=== PATIENT | male | born 1945 | race Hispanic/Latino ===

== ENCOUNTER 2020-08-30 19:18 | Inpatient (IN) | payer MEDICARE ==
[2020-08-30 19:52] LABS: #Lymphocytes 1.7 thou/uL (1.20-3.40); #Monocytes 0.7 thou/uL (0.11-0.59); #Neutrophils 5.4 thou/uL (1.40-6.50); %Basophils 0.5 % (0.0-1.0); %Eosinophils 0.6 % (0.0-10.0); %Lymphocytes 21.3 % (21.0-51.0); %Monocytes 8.9 % (0.0-10.0); %Neutrophils 68.6 % (42.0-75.0); Hemoglobin 17.2 g/dL (14.0-18.0); Mean Corpuscular HGB CONC 33.6 g/dL (32.0-36.0); Mean Corpuscular Hemoglobin 30.8 pg (27.0-31.0); Mean Corpuscular Volume 91.6 fL (78.0-98.0); Mean Platelet Volume 6.5 fL (7.4-10.4); Platelet Count 463 thou/uL (130-400); Red Blood Cell (RBC) Count 5.58 mill/uL (4.70-6.10); White Blood Cell (WBC) Count 7.9 thou/uL (4.8-10.8)
--- NOTE | 2020-08-30 20:08 | RAD ---
PORTABLE CHEST: 08/30/20 HISTORY: Shortness of breath. COMPARISON: 11/22/16 study. Heart size is enlarged. There are postop sternotomy changes. Bilateral lung infiltrates are seen, mor e peripheral in distribution. IMPRESSION: Multifocal infiltrates. This would be suspicious for COVID pneumonia. POS: OFF
[2020-08-30 20:14] LABS: ALT (SGPT) 18 U/L (8-55); AST (SGOT) 47 U/L (5-34); Albumin 2.9 g/dL (3.4-4.8); Alkaline Phosphatase 131 U/L (40-110); Anion Gap 14 mmol/L (10-20); BUN (Urea Nitrogen) 33 mg/dL (8.4-25.7); Calc. Creatinine Clearance 0 mL/min (70-130); Calcium 9.2 mg/dL (7.8-10.44); Carbon Dioxide 27 mmol/L (23-31); Chloride 103 mmol/L (98-107); Globulin 5.1 g/dL (2.4-3.5); Glucose 100 mg/dL (83-110); Sodium 140 mmol/L (136-145)
--- NOTE | 2020-08-30 21:00 | PDOC.FPRHP ---
- History of Present Illness Chief Complaint: Shortness of Breath History of Present Illness: Patient is a 74 yo M who has not seen a PCP in >5 yrs who presents today for worsening SOB. He reports gradual worsening of SOB over the past 2 weeks. He typically is able to walk 2-3 miles/day but now gets dyspneic walking around his home. Patient was otherwise asymptomatic. ED Course: Lab work significant for BNP 324, CXR per my read-bilateral opacities with opacity in LLL. - Allergies/Adverse Reactions Allergies Allergy/AdvReac Type Severity Reaction Status Date / Time No Known Drug Allergies Allergy Verified 08/30/20 23:24 - Home Medications Medication Instructions Recorded Confirmed Type No Known 08/30/20 08/30/20 History - History PMHx: CAD, CABG in 2011. Does not follow with cardiology PSHx: CABG, Rotator cuff surgery in FHx: DM, HTN, CAD Social: Significant for daily etoh consumption- 4 beers/day, has not drank in 2 weeks. Denies former or current tobacco or drug use. Lives alone - Review of Systems General: denies: fever/chills, weight/appetite/sleep changes Eyes: denies: eye pain, vision changes ENT: denies: nasal congestion, rhinorrhea Respiratory: reports: shortness of breath, exercise intolerance. denies: cough, congestion Cardiovascular: denies: chest pain, palpitation, edema Gastrointestinal: denies: nausea, vomiting, diarrhea, constipation, abdominal pain Genitourinary: denies: incontinence, dysuria Skin: denies: rashes, lesions Musculoskeletal: denies: pain, tenderness Neurological: denies: syncope, weakness Psychological: denies: anxiety, depression - Vital signs BP: 145/88, Pulse: 76, Resp: 26, Pain: 0, O2 sat: 93 on (1L Oxygen), Time: 08/30/2020 19:22. O2 sat: 94 on (Room Air), Time: 08/30/2020 19:46. BP: 123/76, Pulse: 63, Resp: 24, Pain: 0, O2 sat: 95 on (Room Air), Time: 08/30/2020 20:26. Temp: 97.6 (Oral), Time: 08/30/2020 20:38. Wt: 68 kg - Physical Exam Constitutional: NAD, awake, alert and oriented, well developed HEENT: normocephalic and atraumatic, no scleral icterus, grossly normal vision, grossly normal hearing, other (left eye pterygium) Neck: supple, FROM, trachea midline Heart: RRR, normal S1/S2, no murmurs/rubs/gallops Lungs: no retractions, other (Diffuse crackles) Abdomen: soft, non-tender, bowel sounds present Musculoskeletal: normal structure, normal tone Neurological: no focal deficit Skin: no rash/lesions, good turgor Heme/Lymphatic: no unusual bruising or bleeding, no purpura Psychiatric: normal mood and affect, good judgment and insight, intact recent and remote memory FMR H&P: Results - Labs Result Diagrams: 08/30/20 19:43 08/30/20 19:43 Lab results: WBC 7.9 thou/uL (4.8-10.8) 08/30/20 19:43 Hgb 17.2 g/dL (14.0-18.0) 08/30/20 19:43 Hct 51.2 % (42.0-52.0) 08/30/20 19:43 MCV 91.6 fL (78.0-98.0) 08/30/20 19:43 Plt Count 463 thou/uL (130-400) H 08/30/20 19:43 Neutrophils % 68.6 % (42.0-75.0) 08/30/20 19:43 Sodium 140 mmol/L (136-145) 08/30/20 19:43 Potassium 4.0 mmol/L (3.5-5.1) 08/30/20 19:43 Chloride 103 mmol/L (98-107) 08/30/20 19:43 Carbon Dioxide 27 mmol/L (23-31) 08/30/20 19:43 BUN 33 mg/dL (8.4-25.7) H 08/30/20 19:43 Creatinine 0.83 mg/dL (0.7-1.3) 08/30/20 19:43 Glucose 100 mg/dL (83-110) 08/30/20 19:43 Calcium 9.2 mg/dL (7.8-10.44) 08/30/20 19:43 Total Bilirubin 1.0 mg/dL (0.2-1.2) 08/30/20 19:43 AST 47 U/L (5-34) H 08/30/20 19:43 ALT 18 U/L (8-55) 08/30/20 19:43 Alkaline Phosphatase 131 U/L (40-110) H 08/30/20 19:43 B-Natriuretic Peptide 324.6 pg/mL (0-100) H 08/30/20 19:43 Serum Total Protein 8.0 g/dL (5.8-8.1) 08/30/20 19:43 Albumin 2.9 g/dL (3.4-4.8) L 08/30/20 19:43 - EKG Interpretation EKG: T wave inversions in V1-V3, artifact on EKG, Normal rhythm, QTC 464 - Radiology Interpretation Chest x-ray Status: image reviewed by me, report reviewed by me Additional comment: Per my read: Bilateral opacities worse in LLL FMR H&P: A/P - Plan Acute Hypoxic Respiratory failure 2/2 COVID pneumonia - Patient on 2LNC, ED reports desaturation to 85% when taken off NC, patient well appearing on exam - Patient is out of window for Conv plasma and Remdesivir - Start Decadron 6 mg PO QD - ICS in room - [place] for pleuritic chest pain to facilitate easier breathing Hx of CAD, s/p CABG - Patient did not continue taking medicines prescribed by physician - Will restart ASA and statin Alcohol use disorder - Reports last drink was 2 weeks ago - Will start ASE protocol Code: Full Diet: HH DVT ppx: Lovenox GI ppx: none PCP: CC, none Dispo: admit to medical, eLOS > 48 hrs FMR H&P: Upper Level - Pertinent history Mr Campos is a 74yo male who presents with SOB that has gradually worsened over the last 2 weeks. Usually walks 3mi per day but now SOB with exertion. Denies CP, cough, fever. No known COVID exposure. PE: General: NAD CV: RRR, no murmur. Normal resp effort Pulm: Diffuse crackles Extremities: No edema, 2+ dorsalis pedis A/P: Acute Hypoxic Respiratory Failure 2/2 COVID pneumonia -Requiring 2L NC, mid 80s on RA. BNP elevated 325, CXR suspicious for COVID. Flu neg. Rapid COVID: positive. EKG with no signs of ischemia. WBC wnl. Will check procal although suspicion for bacterial pneumonia is low. Wean O2 as acacia ated. Admit to medical. Alcohol Use disorder -Last drink 2 weeks ago. Folic acid and MV daily CAD s/p CABG -Start daily Atorvastatin and ASA. HH diet. -Recommend cardiology follow up outpatient. Would get echo however pt COVID positive. - Plan Date/Time: 08/30/202056 I, Adriana Cao, have evaluated this patient and agree with findings/plan as outlined by international freight forwarder resident. Pertinent changes/additions are listed here.
[2020-08-30] MEDS ORDERED: Bisacodyl 10 MG SUPP PR PRN (21:28)
[2020-08-30] MEDS ORDERED: Senokot S 8.6-50 MG TAB PO PRN (21:28)
[2020-08-30] MEDS ORDERED: Calcium Carbonate 500 MG ChewTAB PO PRN (21:28)
[2020-08-30] MEDS ORDERED: Bisacodyl 5 MG TAB PO PRN (21:28)
[2020-08-30] MEDS ORDERED: Acetaminophen 650 MG Suppository PR PRN (21:28)
[2020-08-30 22:03] LABS: SARS-CoV-2 NAA Rapid Test DETECTED (NotDetected)
[2020-08-30 23:06] VITALS: BMI 20.9
[2020-08-30] MEDS ORDERED: Dexamethasone 4 mg/ml Vial SLOW IVP SCH (23:15)
[2020-08-30 23:25] LABS: Hemoglobin A1c 5.4 % (4.0-6.0)
[2020-08-31] MEDS ORDERED: HYDROcodone/Acetaminophen 5/325 mg Tablet PO PRN (00:22)
[2020-08-31] MEDS: Acetaminophen 325 MG TAB PO PRN ×2 (00:30→16:06)
[2020-08-31 06:51] LABS: Mean Corpuscular Hemoglobin 30.6 pg (27.0-31.0); Mean Platelet Volume 6.8 fL (7.4-10.4); Platelet Count 421 thou/uL (130-400); RBC Distribution Width 11.9 % (11.5-14.5); Red Blood Cell (RBC) Count 5.23 mill/uL (4.70-6.10); White Blood Cell (WBC) Count 6.3 thou/uL (4.8-10.8)
--- NOTE | 2020-08-31 06:57 | PDOC.FM ---
- Subjective Subjective: Says SOB has resolved. Slept well overnight. Denies headache, vision changes, chest pain, palpitations, abdominal pain and edema. Ready to go home. - Objective MAR Reviewed: Yes Vital Signs & Weight: Vital Signs (12 hours) Temp Pulse Resp BP Pulse Ox 08/31/20 05:00 98.6 F 58 L 20 149/73 H 98 08/31/20 01:12 98 F 54 L 20 150/70 H 99 08/30/20 22:45 100 08/30/20 22:43 98.1 F 55 L 20 151/72 H 100 Weight Weight 57.211 g I&O: 08/29/20 08/30/20 08/31/20 06:59 06:59 06:59 Intake Total 140 Output Total 300 Balance -160 Result Diagrams: 08/31/20 05:47 08/31/20 05:47 Phys Exam - Physical Examination Constitutional: NAD HEENT: moist MMs, sclera anicteric Neck: full ROM Respiratory: no wheezing, clear to auscultation bilateral On RA Cardiovascular: RRR, no significant murmur Gastrointestinal: soft, non-tender, positive bowel sounds Musculoskeletal: no edema Neurological: moves all 4 limbs Psychiatric: normal affect, A&O x 3 Skin: no rash Dx/Plan - Plan Plan: Episode of acute hypoxia 2/2 COVID pneumonia In ED, desaturation to 85% on RA, placed on 2L NC, now sat'ing 98-100% on RA. Symptom onset 08/16, diagnosed 08/30 - Patient is out of window for Conv plasma and Remdesivir - Continue Decadron 6 mg PO QD - Will complete walking test this am. Currently sat'ing 100% on RA Hx of CAD, s/p CABG - Patient did not continue taking medicines prescribed by physician for past 5 years - Restarted ASA and statin Alcohol use disorder - Reports last drink was 2 weeks ago - On ASE protocol Code: Full Diet: HH DVT ppx: Lovenox PCP: CC, none Dispo: Home pending further medical management. Discussed need to establish with PCP upon discharge. Addendum - Attending - Attending Attestation Date/Time: 08/31/20 0409 I personally evaluated the patient and discussed the management with the team. I agree with the History, Examination, Assessment and Plan documented above with any addition or exceptions noted below. Quite weak. Plan for PT eval and will consider CTA in light of d-dimer.
[2020-08-31 07:02] LABS: ALT (SGPT) 18 U/L (8-55); AST (SGOT) 43 U/L (5-34); Albumin 2.7 g/dL (3.4-4.8); Alkaline Phosphatase 129 U/L (40-110); Anion Gap 14 mmol/L (10-20); BUN (Urea Nitrogen) 34 mg/dL (8.4-25.7); Bilirubin, Total 0.9 mg/dL (0.2-1.2); Calc. Creatinine Clearance 0 mL/min (70-130); Calcium 9.1 mg/dL (7.8-10.44); Carbon Dioxide 26 mmol/L (23-31); Chloride 103 mmol/L (98-107); Glucose 131 mg/dL (83-110); Potassium 4.3 mmol/L (3.5-5.1); Protein, Total 7.7 g/dL (5.8-8.1); Sodium 139 mmol/L (136-145)
[2020-08-31 08:21] LABS: Band 11 % (5-11); Lymphocytes 13 % (21-51); MDiff Complete? YES; Monocytes 4 % (0-10); Neutrophil 70 % (42-75); Platelet Morphology Comment Appears Increased; RBC Morphology Normal; Reactive Lymphocytes 1 % (0-10)
[2020-08-31] MEDS: Enoxaparin Sodium 40 MG/0.4 ML SYRINGE SC SCH (08:29)
[2020-08-31] MEDS: Multivitamin W/ Minerals 1 TAB PO SCH (08:30)
[2020-08-31] MEDS: Dexamethasone 4 mg/ml Vial SLOW IVP SCH (08:30)
[2020-08-31] MEDS: Folic Acid 1 MG TAB PO SCH (08:30)
[2020-08-31] MEDS: Aspirin 81 mg Enteric Coated Tablet PO SCH (08:30)
[2020-08-31] MEDS ORDERED: Iopamidol-370 76% 500 ML 1 ML ONE (14:19)
--- NOTE | 2020-08-31 15:41 | CT ---
CT angiogram chest with IV contrast and 3-D imaging HISTORY: Dyspnea. FINDINGS: There is good contrast opacification pulmonary arteries and thoracic aorta with normal bran sourav of the great vessels at the aortic arch. There are prominent predominantly peripheral ill-defined patchy areas of groundglass infiltrate and interstitial thickening involving each lung. N o pleural fluid or pneumothorax. Postoperative changes mediastinum and right shoulder evident. Small hyperdense stones within the midp ortion of the gallbladder lumen. IMPRESSION : No evidence of pulmonary embolus. Multifocal pneumonitis. Correlate for COVID. Cholelithiasis.
[2020-08-31] MEDS: Atorvastatin Calcium 40 MG TAB PO SCH (20:30)
[2020-09-01 06:41] LABS: ALT (SGPT) 21 U/L (8-55); AST (SGOT) 48 U/L (5-34); Albumin 2.6 g/dL (3.4-4.8); Alkaline Phosphatase 130 U/L (40-110); Anion Gap 13 mmol/L (10-20); BUN (Urea Nitrogen) 32 mg/dL (8.4-25.7); Bilirubin, Total 0.8 mg/dL (0.2-1.2); Calc. Creatinine Clearance 73 mL/min (70-130); Calcium 8.8 mg/dL (7.8-10.44); Carbon Dioxide 25 mmol/L (23-31); Chloride 102 mmol/L (98-107); Globulin 4.9 g/dL (2.4-3.5); Glucose 123 mg/dL (83-110); Potassium 3.8 mmol/L (3.5-5.1); Protein, Total 7.5 g/dL (5.8-8.1); Sodium 136 mmol/L (136-145)
--- NOTE | 2020-09-01 07:14 | PDOC.FM ---
- Subjective Subjective: Worked with PT yesterday and ambulated 75 feet with mild SOB. Sat dropped to max 92% on RA but quickly improved with rest. Slept well overnight. Denies headache, vision changes, chest pain, palpitations, abdominal pain and edema. Ready to go home. - Objective MAR Reviewed: Yes Vital Signs & Weight: Vital Signs (12 hours) Temp Pulse Resp BP Pulse Ox 09/01/20 04:52 97.5 F L 55 L 18 146/80 H 98 09/01/20 01:01 97.4 F L 60 18 145/75 H 97 08/31/20 19:51 97.5 F L 60 18 153/76 H 97 08/31/20 19:31 99 Weight Weight 58 kg I&O: 08/31/20 09/01/20 09/02/20 06:59 06:59 06:59 Intake Total 140 1010 Output Total 300 400 Balance -160 610 Result Diagrams: 09/01/20 05:41 09/01/20 05:41 Phys Exam - Physical Examination Constitutional: NAD HEENT: moist MMs, sclera anicteric Neck: full ROM Respiratory: no wheezing, clear to auscultation bilateral Sat 100% on RA Cardiovascular: RRR, no significant murmur Gastrointestinal: soft, non-tender, positive bowel sounds Musculoskeletal: no edema Neurological: moves all 4 limbs Psychiatric: normal affect, A&O x 3 Skin: no rash Dx/Plan - Plan Plan: Episode of acute hypoxia 2/2 COVID pneumonia In ED, desaturation to 85% on RA, placed on 2L NC, now sat'ing 98-100% on RA. Symptom onset 08/16, diagnosed 08/30 - Patient is out of window for Conv plasma and Remdesivir - Continue Decadron 6 mg PO QD - Walking test completed on 08/31. Desat to 90% on RA, quickly improved back to 100%, Will repeat today - PT evaluated. Recommended HH PT. Patient ambulated 75 feet on 08/31 Hx of CAD, s/p CABG - Patient did not continue taking medicines prescribed by physician for past 5 years - Restarted ASA and statin Alcohol use disorder - Reports last drink was 2 weeks ago - On ASE protocol Code: Full Diet: HH DVT ppx: Lovenox PCP: CC, none Dispo: Home with HH. Discussed need to establish with PCP upon discharge. Addendum - Attending - Attending Attestation Date/Time: 09/01/20 1207 I personally evaluated the patient and discussed the management with Dr. Loyola. I agree with the History, Examination, Assessment and Plan documented above with any addition or exceptions noted below.
[2020-09-01 08:42] LABS: Hemoglobin 16.6 g/dL (14.0-18.0); Mean Corpuscular HGB CONC 33.8 g/dL (32.0-36.0); Mean Corpuscular Hemoglobin 31.3 pg (27.0-31.0); Mean Corpuscular Volume 92.5 fL (78.0-98.0); Mean Platelet Volume 6.8 fL (7.4-10.4); Platelet Count 462 thou/uL (130-400); Red Blood Cell (RBC) Count 5.31 mill/uL (4.70-6.10); White Blood Cell (WBC) Count 12.5 thou/uL (4.8-10.8)
[2020-09-01 08:49] LABS: Band 7 % (5-11); Lymphocytes 10 % (21-51); MDiff Complete? YES; Monocytes 6 % (0-10); Neutrophil 75 % (42-75); Platelet Morphology Comment Appears Increased; Polychromasia SLIGHT = 2-3 cells (100X) (0-2/hpf); Reactive Lymphocytes 2 % (0-10)
[2020-09-01] MEDS: Aspirin 81 mg Enteric Coated Tablet PO SCH (10:06)
[2020-09-01] MEDS: Folic Acid 1 MG TAB PO SCH (10:06)
[2020-09-01] MEDS: Dexamethasone 4 mg/ml Vial SLOW IVP SCH (10:06)
[2020-09-01] MEDS: Enoxaparin Sodium 40 MG/0.4 ML SYRINGE SC SCH (10:06)
[2020-09-01] MEDS: Multivitamin W/ Minerals 1 TAB PO SCH (10:07)
[2020-09-01] MEDS: Atorvastatin Calcium 40 MG TAB PO SCH (20:46)
[2020-09-02 06:32] LABS: Mean Corpuscular Hemoglobin 30.1 pg (27.0-31.0); Mean Corpuscular Volume 91.2 fL (78.0-98.0); Mean Platelet Volume 6.5 fL (7.4-10.4); Platelet Count 517 thou/uL (130-400); Red Blood Cell (RBC) Count 5.32 mill/uL (4.70-6.10); White Blood Cell (WBC) Count 10.4 thou/uL (4.8-10.8)
[2020-09-02 06:56] LABS: ALT (SGPT) 66 U/L (8-55); AST (SGOT) 121 U/L (5-34); Albumin 2.6 g/dL (3.4-4.8); Alkaline Phosphatase 253 U/L (40-110); Anion Gap 11 mmol/L (10-20); BUN (Urea Nitrogen) 30 mg/dL (8.4-25.7); Bilirubin, Total 0.8 mg/dL (0.2-1.2); Calc. Creatinine Clearance 73 mL/min (70-130); Calcium 8.9 mg/dL (7.8-10.44); Carbon Dioxide 28 mmol/L (23-31); Chloride 103 mmol/L (98-107); Globulin 4.7 g/dL (2.4-3.5); Glucose 93 mg/dL (83-110); Potassium 4.1 mmol/L (3.5-5.1); Protein, Total 7.3 g/dL (5.8-8.1); Sodium 138 mmol/L (136-145)
--- NOTE | 2020-09-02 07:12 | PDOC.FM ---
- Subjective Subjective: Slept well overnight. Denies headache, vision changes, chest pain, palpitations, abdominal pain and edema. Reports SOB with ambulation. Did not participate with PT yesterday. - Objective OCT Reviewed: Yes Vital Signs & Weight: Vital Signs (12 hours) Temp Pulse Resp BP BP Pulse Ox 09/02/20 04:00 97.5 F L 52 L 18 151/78 H 97 09/02/20 03:00 97.5 F L 69 18 145/76 H 96 09/02/20 02:00 145/76 H 09/01/20 23:00 97.5 F L 69 18 145/76 H 96 09/01/20 22:00 146/87 H Weight Weight 58 kg I&O: 09/01/20 09/02/20 09/03/20 06:59 06:59 06:59 Intake Total 1010 800 Output Total 400 700 Balance 610 100 Result Diagrams: 09/02/20 06:05 09/02/20 06:05 Phys Exam - Physical Examination Constitutional: NAD HEENT: moist MMs, sclera anicteric Neck: full ROM Respiratory: no wheezing, clear to auscultation bilateral 94% on RA Cardiovascular: RRR, no significant murmur Gastrointestinal: soft, non-tender, positive bowel sounds Musculoskeletal: no edema Neurological: moves all 4 limbs Psychiatric: normal affect, A&O x 3 Skin: no rash Dx/Plan - Plan Plan: Episode of acute hypoxia 2/2 COVID pneumonia In ED, desaturation to 85% on RA, placed on 2L NC, now sat'ing 98-100% on RA. Symptom onset 08/16, diagnosed 08/30 - Patient is out of window for Conv plasma and Remdesivir - Continue Decadron 6 mg PO QD - PT evaluated. Recommended PT on initial evaluation. Will re-evaluate today - OT evaluated. O2 sat dropped to 78% with ambulation, quickly recovered to 90% with rest. Recommended rehab - Walking test this am: O2 sat dropped to 77% with ambulation, improved to 97% on 2L then RA - F/u CM. Has been accepted to HH. Patient considering swing bed given rehab recommendation. Hx of CAD, s/p CABG - Patient did not continue taking medicines prescribed by physician for past 5 years - Restarted ASA and statin Alcohol use disorder - Reports last drink was 2 weeks ago - On ASE protocol Transaminitis AST 43 -> 48 -> 121. ALT 18 -> 21 -> 66. Alk phos 129 -> 130 -> 253. -Will discontinue Tylenol -Monitor with am labs Code: Full Diet: HH DVT ppx: Lovenox PCP: [facility], none Dispo: Home with vs. Swing bed pending patient decision and approval. Discussed need to establish with PCP upon discharge. Addendum - Attending - Attending Attestation Date/Time: 09/02/20 6882 I personally evaluated the patient and discussed the management with the team. I agree with the History, Examination, Assessment and Plan documented above with any addition or exceptions noted below.
[2020-09-02 08:03] LABS: Band 5 % (5-11); Lymphocytes 14 % (21-51); MDiff Complete? YES; Monocytes 7 % (0-10); Neutrophil 67 % (42-75); Platelet Morphology Comment Appears Increased; Polychromasia SLIGHT = 2-3 cells (100X) (0-2/hpf); Reactive Lymphocytes 7 % (0-10)
[2020-09-02] MEDS: Folic Acid 1 MG TAB PO SCH (08:09)
[2020-09-02] MEDS: Dexamethasone 4 mg/ml Vial SLOW IVP SCH (08:09)
[2020-09-02] MEDS: Enoxaparin Sodium 40 MG/0.4 ML SYRINGE SC SCH (08:09)
[2020-09-02] MEDS: Multivitamin W/ Minerals 1 TAB PO SCH (08:09)
[2020-09-02] MEDS: Aspirin 81 mg Enteric Coated Tablet PO SCH (08:09)
[2020-09-02] MEDS: Atorvastatin Calcium 40 MG TAB PO SCH (21:02)
--- NOTE | 2020-09-03 06:53 | PDOC.FM ---
- Subjective Subjective: Reports SOB requiring O2 with ambulation. Worked with PT/OT yesterday. Says he thought about placement overnight and is now agreeable to it. Would likely to speak with CM regarding options. Denies headache, vision changes, chest pain, palpitations and edema. - Objective MAR Reviewed: Yes Vital Signs & Weight: Vital Signs (12 hours) Temp Pulse Resp BP BP Pulse Ox 09/03/20 04:00 98.5 F 55 L 18 145/78 H 96 09/03/20 02:00 149/86 H 09/02/20 23:48 97.5 F L 61 18 149/71 H 94 L 09/02/20 22:00 149/86 H 09/02/20 19:41 97.9 F 56 L 18 149/86 H 96 Weight Weight 58 kg I&O: 09/01/20 09/02/20 09/03/20 06:59 06:59 06:59 Intake Total 1010 800 960 Output Total 400 700 Balance 610 100 960 Result Diagrams: 09/03/20 06:48 09/03/20 06:48 Phys Exam - Physical Examination Constitutional: NAD HEENT: moist MMs, sclera anicteric Neck: full ROM Respiratory: no wheezing, clear to auscultation bilateral On RA Cardiovascular: RRR, no significant murmur Gastrointestinal: soft, non-tender, positive bowel sounds Musculoskeletal: no edema Neurological: moves all 4 limbs Psychiatric: normal affect Skin: no rash Dx/Plan - Plan Plan: Episode of acute hypoxia 2/2 COVID pneumonia In ED, desaturation to 85% on RA, placed on 2L NC, now sat'ing 98-100% on RA. Symptom onset 08/16, diagnosed 08/30 - Patient is out of window for Conv plasma and Remdesivir - Continue Decadron 6 mg PO QD - PT/OT evaluated. Desaturates to 70s with ambulation, quickly recovering with rest. Recommended rehab - F/u CM on rehab options Elevated BP readings Bp ranged 140-160s systolic -Start Lisinopril 5mg daily Hx of CAD, s/p CABG - Patient did not continue taking medicines prescribed by physician for past 5 years - Restarted ASA and statin Alcohol use disorder - Reports last drink was 2 weeks ago - On ASE protocol Transaminitis AST 43 -> 48 -> 121. ALT 18 -> 21 -> 66. Alk phos 129 -> 130 -> 253. -Will discontinue Tylenol -Monitor with am labs Code: Full Diet: HH DVT ppx: Lovenox PCP: CC, none Dispo: Swing bed pending approval. Discussed need to establish with PCP upon discharge. Addendum - Attending - Attending Attestation Date/Time: 09/03/20 3471 I personally evaluated the patient and discussed the management with Dr. Loyola. I agree with the History, Examination, Assessment and Plan documented above with any addition or exceptions noted below. Monitor LFTs.
[2020-09-03 07:48] LABS: Hemoglobin 15.9 g/dL (14.0-18.0); Mean Corpuscular HGB CONC 32.8 g/dL (32.0-36.0); Mean Corpuscular Hemoglobin 29.9 pg (27.0-31.0); Mean Corpuscular Volume 91.4 fL (78.0-98.0); Mean Platelet Volume 6.5 fL (7.4-10.4); Platelet Count 471 thou/uL (130-400); Red Blood Cell (RBC) Count 5.32 mill/uL (4.70-6.10); White Blood Cell (WBC) Count 9.4 thou/uL (4.8-10.8)
[2020-09-03 07:53] LABS: ALT (SGPT) 81 U/L (8-55); AST (SGOT) 130 U/L (5-34); Albumin 2.5 g/dL (3.4-4.8); Alkaline Phosphatase 230 U/L (40-110); Anion Gap 13 mmol/L (10-20); BUN (Urea Nitrogen) 27 mg/dL (8.4-25.7); Bilirubin, Total 0.8 mg/dL (0.2-1.2); Calc. Creatinine Clearance 77 mL/min (70-130); Calcium 8.5 mg/dL (7.8-10.44); Carbon Dioxide 23 mmol/L (23-31); Chloride 105 mmol/L (98-107); Globulin 4.5 g/dL (2.4-3.5); Glucose 77 mg/dL (83-110); Sodium 137 mmol/L (136-145)
[2020-09-03] MEDS: Multivitamin W/ Minerals 1 TAB PO SCH (08:16)
[2020-09-03] MEDS: Enoxaparin Sodium 40 MG/0.4 ML SYRINGE SC SCH (08:17)
[2020-09-03] MEDS: Aspirin 81 mg Enteric Coated Tablet PO SCH (08:17)
[2020-09-03] MEDS: Folic Acid 1 MG TAB PO SCH (08:17)
[2020-09-03] MEDS: Dexamethasone 4 mg/ml Vial SLOW IVP SCH (08:17)
[2020-09-03] MEDS ORDERED: Lisinopril 2.5 MG TAB PO SCH (09:00)
[2020-09-03 10:56] LABS: Hemoglobin A1c 5.6 % (4.0-6.0)
[2020-09-03 11:10] LABS: Band 1 % (5-11); Lymphocytes 12 % (21-51); MDiff Complete? YES; Monocytes 9 % (0-10); Neutrophil 76 % (42-75); Platelet Morphology Comment Appears Increased; Reactive Lymphocytes 2 % (0-10)
--- NOTE | 2020-09-04 06:42 | PDOC.FM ---
- Subjective Subjective: Experiences SOB with ambulation, none at rest. Denies headache, chest pain, palpitations, nausea, abdominal pain, constipation, diarrhea, edema, fatigue, lightheadedness and dizziness. Says he spoke with his son yesterday and is agreeable to [facility]. - Objective MAR Reviewed: Yes Vital Signs & Weight: Vital Signs (12 hours) Temp Pulse Resp BP Pulse Ox 09/04/20 04:00 98 F 55 L 18 130/80 93 L 09/04/20 00:00 98 F 54 L 18 132/83 94 L 09/03/20 21:35 18 96 09/03/20 20:00 96 09/03/20 19:24 97.4 F L 55 L 18 132/83 96 Weight Weight 56.358 kg I&O: 09/02/20 09/03/20 09/04/20 06:59 06:59 06:59 Intake Total 800 960 360 Output Total 700 300 Balance 100 960 60 Result Diagrams: 09/04/20 06:42 09/04/20 06:42 Phys Exam - Physical Examination Constitutional: NAD HEENT: moist MMs, sclera anicteric Neck: full ROM Respiratory: no wheezing, clear to auscultation bilateral On RA Cardiovascular: RRR, no significant murmur Gastrointestinal: soft, non-tender, positive bowel sounds Musculoskeletal: no edema Neurological: moves all 4 limbs Psychiatric: normal affect Skin: no rash Dx/Plan - Plan Plan: Episode of acute hypoxia 2/2 COVID pneumonia In ED, desaturation to 85% on RA, placed on 2L NC, now sat'ing 98-100% on RA. Symptom onset 08/16, diagnosed 08/30 - Patient is out of window for Conv plasma and Remdesivir - Continue Decadron 6 mg PO QD - Requires 2L with ambulation due to desats - PT/OT evaluated. Desaturates to 70s with ambulation, quickly recovering with rest. Recommended rehab - CM consulted. Pending approval to [facility] Elevated BP readings -Start Lisinopril 5mg daily on 09/03. Continue at current dose at BP at goal Hx of CAD, s/p CABG - Patient did not continue taking medicines prescribed by physician for past 5 years - Restarted ASA and statin - Will need to establish with PCP, cardiology for further management outpatient Alcohol use disorder - Reports last drink was 2 weeks ago - On ASE protocol Transaminitis AST 43 -> 48 -> 121. ALT 18 -> 21 -> 66. Alk phos 129 -> 130 -> 253. Likely 2/2 COVID -Discontinued Tylenol -Monitor with am labs Bradycardia HR 50s overnight. Likely 2/2 COVID -Monitor. If becomes symptomatic, obtain EKG Code: Full Diet: HH DVT ppx: Lovenox PCP: CC, none Dispo: Swing bed pending approval. Discussed need to establish with PCP upon discharge. Addendum - Attending - Attending Attestation Date/Time: 09/04/20 2785 I personally evaluated the patient and discussed the management with Dr. Loyola. I agree with the History, Examination, Assessment and Plan documented above with any addition or exceptions noted below.
[2020-09-04 06:55] LABS: #Lymphocytes 1.2 thou/uL (1.20-3.40); #Monocytes 0.9 thou/uL (0.11-0.59); #Neutrophils 9.1 thou/uL (1.40-6.50); %Basophils 0.1 % (0.0-1.0); %Eosinophils 0.1 % (0.0-10.0); %Lymphocytes 10.4 % (21.0-51.0); %Monocytes 8.3 % (0.0-10.0); %Neutrophils 81.2 % (42.0-75.0); Hemoglobin 16.8 g/dL (14.0-18.0); Mean Corpuscular HGB CONC 32.5 g/dL (32.0-36.0); Mean Corpuscular Hemoglobin 29.7 pg (27.0-31.0); Mean Corpuscular Volume 91.3 fL (78.0-98.0); Mean Platelet Volume 6.4 fL (7.4-10.4); Platelet Count 437 thou/uL (130-400); Red Blood Cell (RBC) Count 5.65 mill/uL (4.70-6.10); White Blood Cell (WBC) Count 11.2 thou/uL (4.8-10.8)
[2020-09-04 07:17] LABS: ALT (SGPT) 129 U/L (8-55); AST (SGOT) 162 U/L (5-34); Albumin 2.6 g/dL (3.4-4.8); Alkaline Phosphatase 249 U/L (40-110); Anion Gap 12 mmol/L (10-20); BUN (Urea Nitrogen) 25 mg/dL (8.4-25.7); Bilirubin, Total 0.9 mg/dL (0.2-1.2); Calc. Creatinine Clearance 72 mL/min (70-130); Calcium 8.6 mg/dL (7.8-10.44); Carbon Dioxide 24 mmol/L (23-31); Chloride 104 mmol/L (98-107); Globulin 4.7 g/dL (2.4-3.5); Glucose 82 mg/dL (83-110); Potassium 4.1 mmol/L (3.5-5.1); Protein, Total 7.3 g/dL (5.8-8.1); Sodium 136 mmol/L (136-145)
[2020-09-04] MEDS: Enoxaparin Sodium 40 MG/0.4 ML SYRINGE SC SCH (07:47)
[2020-09-04] MEDS: Lisinopril 2.5 MG TAB PO SCH (07:47)
[2020-09-04] MEDS: Aspirin 81 mg Enteric Coated Tablet PO SCH (07:47)
[2020-09-04] MEDS: Multivitamin W/ Minerals 1 TAB PO SCH (07:48)
[2020-09-04] MEDS: Dexamethasone 4 MG TAB PO SCH (07:48)
[2020-09-04] MEDS: Folic Acid 1 MG TAB PO SCH (07:48)
--- NOTE | 2020-09-05 07:05 | PDOC.FM ---
- Subjective Subjective: Mr. Campos reports he did not sleep well last night and that his legs have been extremely dry and itchy. He says he is eating well and he is having no problems with his breathing. - Objective Vital Signs & Weight: Vital Signs (12 hours) Temp Pulse Resp BP Pulse Ox 09/05/20 04:00 98.2 F 54 L 18 142/80 H 94 L 09/04/20 23:32 98 F 52 L 18 120/72 97 09/04/20 20:00 97.8 F 54 L 18 120/74 96 Weight Weight 57.124 kg I&O: 09/04/20 09/05/20 09/06/20 06:59 06:59 06:59 Intake Total 360 310 Output Total 300 200 Balance 60 110 Result Diagrams: 09/04/20 06:42 09/05/20 06:38 Phys Exam - Physical Examination Constitutional: NAD HEENT: moist MMs, sclera anicteric Neck: full ROM Respiratory: no wheezing, no rales, no rhonchi, clear to auscultation bilateral Cardiovascular: RRR, no significant murmur Gastrointestinal: soft, no distention Musculoskeletal: no edema, pulses present Neurological: non-focal Skin: no rash Dx/Plan - Plan Plan: Episode of acute hypoxia 2/2 COVID pneumonia In ED, desaturation to 85% on RA, placed on 2L NC, now sating 98-100% on RA. Symptom onset 08/16, diagnosed 08/30. Patient out of window for Conv plasma and Remdesivir - Continue Decadron 6 mg PO QD (09/04) - Requires 2L with ambulation due to desats - PT/OT evaluated. Desaturates to 70s with ambulation, quickly recovering with rest. Recommended rehab - CM consulted. Pending insurance approval to [facility]. Elevated BP readings -Start Lisinopril 2.5mg daily on 09/03. Continue at current dose as BP is at goal Hx of CAD, s/p CABG - Patient did not continue taking medicines prescribed by physician for past 5 years - Restarted ASA and statin - Will need to establish with PCP, cardiology for further management outpatient Alcohol use disorder - Reports last drink was 2 weeks ago - On ASE protocol Transaminitis, improving AST 162, 116. ALT 129, 118. Alk phos 249, 232. Likely 2/2 COVID -Discontinued Tylenol -Monitor with am labs Bradycardia HR 50s overnight. Likely 2/2 COVID -Monitor. If becomes symptomatic, obtain EKG Code: Full Diet: HH DVT ppx: Lovenox PCP: CC, none Dispo: Medically apprved for [facility], awaiting insurance approval. Ready for discharge per approval. Addendum - Attending - Attending Attestation Date/Time: 09/05/20 [id number] I personally evaluated the patient and discussed the management with Dr. Fall. I agree with the History, Examination, Assessment and Plan documented above with any addition or exceptions noted below. D/c once placed at swing bed. No O2 requirement today.
[2020-09-05 07:24] LABS: ALT (SGPT) 118 U/L (8-55); AST (SGOT) 116 U/L (5-34); Albumin 2.5 g/dL (3.4-4.8); Alkaline Phosphatase 232 U/L (40-110); Anion Gap 13 mmol/L (10-20); BUN (Urea Nitrogen) 25 mg/dL (8.4-25.7); Bilirubin, Total 0.8 mg/dL (0.2-1.2); Calc. Creatinine Clearance 74 mL/min (70-130); Calcium 8.6 mg/dL (7.8-10.44); Carbon Dioxide 20 mmol/L (23-31); Chloride 107 mmol/L (98-107); Globulin 4.7 g/dL (2.4-3.5); Glucose 86 mg/dL (83-110); Protein, Total 7.2 g/dL (5.8-8.1); Sodium 136 mmol/L (136-145)
[2020-09-05] MEDS: Multivitamin W/ Minerals 1 TAB PO SCH (09:02)
[2020-09-05] MEDS: Dexamethasone 4 MG TAB PO SCH (09:02)
[2020-09-05] MEDS: Aspirin 81 mg Enteric Coated Tablet PO SCH (09:03)
[2020-09-05] MEDS: Lisinopril 2.5 MG TAB PO SCH (09:03)
[2020-09-05] MEDS: Enoxaparin Sodium 40 MG/0.4 ML SYRINGE SC SCH (09:03)
[2020-09-05] MEDS: Folic Acid 1 MG TAB PO SCH (09:03)
--- NOTE | 2020-09-05 14:35 | RAD ---
Exam: Chest one view HISTORY:COVID pneumonia. Hypoxia. Comparison: 08/30/2020 FINDINGS: Cardiac silhouette:Normal cardiac silhouette. Stable sternotomy wires Aorta: Unremarkable Pulmonary vessels: Normal Costophrenic angles: Small left effusion LUNGS: Multi lobar opacities. Pneumothorax: None Osseous abnormalities: None IMPRESSION: Stable multi lobar COVID pneumonia
[2020-09-06 06:18] LABS: #Basophils 0.1 thou/uL (0.0-0.2); #Lymphocytes 1.7 thou/uL (1.20-3.40); #Monocytes 1.1 thou/uL (0.11-0.59); #Neutrophils 10.8 thou/uL (1.40-6.50); %Basophils 0.5 % (0.0-1.0); %Eosinophils 0.1 % (0.0-10.0); %Lymphocytes 12.6 % (21.0-51.0); %Monocytes 8.2 % (0.0-10.0); %Neutrophils 78.6 % (42.0-75.0); Hemoglobin 17.1 g/dL (14.0-18.0); Mean Corpuscular HGB CONC 34.5 g/dL (32.0-36.0); Mean Corpuscular Hemoglobin 31.3 pg (27.0-31.0); Mean Corpuscular Volume 90.5 fL (78.0-98.0); Mean Platelet Volume 6.8 fL (7.4-10.4); Platelet Count 409 thou/uL (130-400); RBC Distribution Width 12.2 % (11.5-14.5); Red Blood Cell (RBC) Count 5.48 mill/uL (4.70-6.10); White Blood Cell (WBC) Count 13.8 thou/uL (4.8-10.8)
[2020-09-06 06:45] LABS: ALT (SGPT) 130 U/L (8-55); AST (SGOT) 123 U/L (5-34); Albumin 2.6 g/dL (3.4-4.8); Alkaline Phosphatase 241 U/L (40-110); Anion Gap 12 mmol/L (10-20); BUN (Urea Nitrogen) 26 mg/dL (8.4-25.7); Bilirubin, Total 0.8 mg/dL (0.2-1.2); Calc. Creatinine Clearance 80 mL/min (70-130); Calcium 8.6 mg/dL (7.8-10.44); Carbon Dioxide 23 mmol/L (23-31); Chloride 106 mmol/L (98-107); Globulin 4.7 g/dL (2.4-3.5); Glucose 85 mg/dL (83-110); Potassium 3.9 mmol/L (3.5-5.1); Protein, Total 7.3 g/dL (5.8-8.1); Sodium 137 mmol/L (136-145)
--- NOTE | 2020-09-06 07:07 | PDOC.FM ---
- Subjective Subjective: Mr. Campos complains of being unable to sleep at night. Otherwise he says he is breathing well. - Objective Vital Signs & Weight: Vital Signs (12 hours) Temp Pulse Resp BP BP Pulse Ox 09/05/20 22:00 120/79 09/05/20 20:00 97.6 F 54 L 18 120/79 95 Weight Weight 57 kg I&O: 09/05/20 09/06/20 09/07/20 06:59 06:59 06:59 Intake Total 310 1020 Output Total 200 800 Balance 110 220 Result Diagrams: 09/06/20 05:49 09/06/20 05:49 Phys Exam - Physical Examination Constitutional: NAD HEENT: moist MMs, sclera anicteric Neck: no nodes Respiratory: no wheezing, no rales, no rhonchi, clear to auscultation bilateral Cardiovascular: RRR, no significant murmur Gastrointestinal: soft, non-tender, positive bowel sounds Musculoskeletal: no edema, pulses present Neurological: non-focal Lymphatic: no nodes Psychiatric: normal affect, A&O x 3 Skin: no rash Dx/Plan - Plan Plan: Episode of acute hypoxia 2/2 COVID pneumonia - Symptom onset 08/16, diagnosed 08/30. Patient out of window for Conv plasma and Remdesivir - Continue Decadron 6 mg PO QD (09/04) - Required 5L NC yesterday due to desaturation into mid80s. Is now stable on 93- 95% on 2L. - PT/OT evaluated. Recommended rehab - CM consulted. Pending insurance approval to [facility]. Elevated BP readings -Start Lisinopril 2.5mg daily on 09/03. Continue at current dose as BP is at goal Hx of CAD, s/p CABG - Patient did not continue taking medicines prescribed by physician for past 5 years - Restarted ASA and statin - Will need to establish with PCP, cardiology for further management outpatient Alcohol use disorder - Reports last drink was 2 weeks ago - On ASE protocol Transaminitis AST 162, 116, 123. ALT 129, 118, 130. Alk phos 249, 232, 241. Likely 2/2 COVID -Discontinued Tylenol -Monitor with am labs Bradycardia HR 50s overnight. Likely 2/2 COVID -Monitor. If becomes symptomatic, obtain EKG Code: Full Diet: HH DVT ppx: Lovenox PCP: CC, none Dispo: Medically apprved for [facility], awaiting insurance approval. Ready for discharge per approval. Addendum - Attending - Attending Attestation Date/Time: 09/06/20 [id number] I personally evaluated the patient and discussed the management with Dr. Fall. I agree with the History, Examination, Assessment and Plan documented above with any addition or exceptions noted below. He began requiring oxygen yesterday afternoon. CXR stable. We will repeat a D- dimer on him and if it trending up will order CTA chest to evaluate for PE. dispo pending insurance approval. Transaminitis has stabilized.
[2020-09-06] MEDS: Dexamethasone 4 MG TAB PO SCH (08:16)
[2020-09-06] MEDS: Multivitamin W/ Minerals 1 TAB PO SCH (08:16)
[2020-09-06] MEDS: Enoxaparin Sodium 40 MG/0.4 ML SYRINGE SC SCH (08:16)
[2020-09-06] MEDS: Folic Acid 1 MG TAB PO SCH (08:16)
[2020-09-06] MEDS: Lisinopril 2.5 MG TAB PO SCH (08:16)
[2020-09-06] MEDS: Aspirin 81 mg Enteric Coated Tablet PO SCH (08:16)
[2020-09-06] MEDS ORDERED: Melatonin 3 MG TAB PO PRN (09:13)
[2020-09-06] MEDS ORDERED: Iopamidol-370 76% 500 ML 1 ML ONE (10:14)
[2020-09-06] MEDS ORDERED: Zolpidem Tartrate 5 MG TAB PO PRN (11:18)
--- NOTE | 2020-09-06 14:36 | CT ---
CTA OF THE [facility]ORAX UTILIZING IV CONTRAST AND PE PROTOCOL AND 3D REFORMATTED IMAGING: INDICATION: Evaluate for PE with shortness of breath and COVID pneumonia. COMPARISON: Prior exam dated 08/31/2020. FINDINGS: No central or segmental pulmonary embolus is evident. There is postsurgical change of prior CABG. T here are coronary artery and thoracic aorta calcifications. No definite pathologically enlarged lymp h nodes are evident. Visualized upper abdomen reveals no definite acute abnormality. There is worse romaine peripheral consolidation within both lungs consistent with worsening COVID pneumonia. Scattered degenerative and osteoarthritic change. IMPRESSION: 1. No central or segmental pulmonary embolus. 2. Worsening bilateral COVID pneumonia. POS: [facility]
[2020-09-07 06:41] LABS: ALT (SGPT) 136 U/L (8-55); AST (SGOT) 106 U/L (5-34); Albumin 2.7 g/dL (3.4-4.8); Alkaline Phosphatase 232 U/L (40-110); Anion Gap 13 mmol/L (10-20); BUN (Urea Nitrogen) 27 mg/dL (8.4-25.7); Bilirubin, Total 0.8 mg/dL (0.2-1.2); Calc. Creatinine Clearance 82 mL/min (70-130); Calcium 8.8 mg/dL (7.8-10.44); Carbon Dioxide 25 mmol/L (23-31); Chloride 104 mmol/L (98-107); Glucose 79 mg/dL (83-110); Potassium 3.5 mmol/L (3.5-5.1); Protein, Total 7.7 g/dL (5.8-8.1); Sodium 138 mmol/L (136-145)
--- NOTE | 2020-09-07 07:05 | PDOC.FM ---
- Subjective Subjective: Mr. Campos reports he did not sleep well last night but says he forgot to ask for medicine. He says he has breathing well and otherwise has no complaints. - Objective Vital Signs & Weight: Vital Signs (12 hours) Temp Pulse Resp BP BP Pulse Ox 09/06/20 22:00 123/75 09/06/20 20:00 97.7 F 54 L 20 123/75 95 Weight Weight 57.1 kg I&O: 09/06/20 09/07/20 09/08/20 06:59 06:59 06:59 Intake Total 1020 850 Output Total 800 600 Balance 220 250 Result Diagrams: 09/07/20 07:41 09/07/20 05:45 Phys Exam - Physical Examination Constitutional: NAD HEENT: sclera anicteric Neck: no nodes, full ROM Respiratory: no wheezing, no rales, no rhonchi, clear to auscultation bilateral Cardiovascular: RRR, no significant murmur Gastrointestinal: soft, non-tender Musculoskeletal: no edema, pulses present Neurological: non-focal Psychiatric: normal affect Skin: no rash Dx/Plan - Plan Plan: Episode of acute hypoxia 2/2 COVID pneumonia - Symptom onset 08/16, diagnosed 08/30. Patient out of window for Conv plasma and Remdesivir - Continue Decadron 6 mg PO QD (09/04) - Has an intermittent - PT/OT evaluated. Recommended rehab - CM consulted. Pending insurance approval to [facility]. HTN -Started Lisinopril 2.5mg daily on 09/03. Continue at current dose as BP is at goal Insomnia - Patient reports he hasn't slept the past 4 nights - ambien ordered prn Hx of CAD, s/p CABG - Patient did not continue taking medicines prescribed by physician for past 5 years - Restarted ASA and statin - Will need to establish with PCP, cardiology for further management outpatient Alcohol use disorder - Reports last drink was 2 weeks ago - On ASE protocol Transaminitis AST 162, 116, 123. ALT 129, 118, 130. Alk phos 249, 232, 241. Likely 2/2 COVID -Discontinued Tylenol -Monitor with am labs Bradycardia HR 50s overnight. Likely 2/2 COVID -Monitor. If becomes symptomatic, obtain EKG Code: Full Diet: HH DVT ppx: Lovenox PCP: CC, none Dispo: Approved for [facility]. Discharge home today Addendum - Attending - Attending Attestation Date/Time: 09/07/20 1101 I personally evaluated the patient and discussed the management with Dr. Fall. I agree with the History, Examination, Assessment and Plan documented above with any addition or exceptions noted below. off oxygen this morning. complained of poor sleep but didnt ask for ambien last night. d/c to sn[facility] today.
[2020-09-07 07:48] LABS: #Lymphocytes 1.7 thou/uL (1.20-3.40); #Monocytes 1.3 thou/uL (0.11-0.59); #Neutrophils 8.3 thou/uL (1.40-6.50); %Eosinophils 0.1 % (0.0-10.0); %Lymphocytes 15.2 % (21.0-51.0); %Monocytes 11.5 % (0.0-10.0); %Neutrophils 73.2 % (42.0-75.0); Hemoglobin 17.4 g/dL (14.0-18.0); Mean Corpuscular HGB CONC 34.7 g/dL (32.0-36.0); Mean Corpuscular Hemoglobin 31.9 pg (27.0-31.0); Mean Corpuscular Volume 91.8 fL (78.0-98.0); Mean Platelet Volume 6.6 fL (7.4-10.4); Platelet Count 365 thou/uL (130-400); RBC Distribution Width 12.1 % (11.5-14.5); Red Blood Cell (RBC) Count 5.45 mill/uL (4.70-6.10); White Blood Cell (WBC) Count 11.3 thou/uL (4.8-10.8)
[2020-09-07] MEDS: Enoxaparin Sodium 40 MG/0.4 ML SYRINGE SC SCH (09:32)
[2020-09-07] MEDS: Lisinopril 2.5 MG TAB PO SCH (09:32)
[2020-09-07] MEDS: Aspirin 81 mg Enteric Coated Tablet PO SCH (09:32)
[2020-09-07] MEDS: Dexamethasone 4 MG TAB PO SCH (09:32)
[2020-09-07] MEDS: Multivitamin W/ Minerals 1 TAB PO SCH (09:32)
[2020-09-07] MEDS: Folic Acid 1 MG TAB PO SCH (09:32)
[2020-09-07 14:17] VITALS: BP 117/77; TEMP 97.5
== END 2020-09-07 14:52 | disposition swing bed (61) | DRG 177 ==
LOC: ERS 19:18 → T4-B 20:56
PROVIDERS: ADMIT Family Medicine; ATTEND Family Medicine
PROC: 8E0ZXY6 Isolation (ICD-10-PCS; principal; 2020-08-30)
DX: U07.1 COVID-19 (principal); J96.01 Acute respiratory failure with hypoxia; J12.82 Pneumonia due to coronavirus disease 2019; I25.10 Atherosclerotic heart disease of native coronary artery without angina pectoris; F10.10 Alcohol abuse, uncomplicated; R00.1 Bradycardia, unspecified; R03.0 Elevated blood-pressure reading, without diagnosis of hypertension; G47.00 Insomnia, unspecified; R74.01 Elevation of levels of liver transaminase levels; Z95.1 Presence of aortocoronary bypass graft
CPT/HCPCS: 0240U; 36415; 71045; 71275; 80053; 83036; 83880; 84145; 84484; 85007; 85025; 85027; 85379; 86140; 93005; J1100; J1650; J8540; Q9967

== ENCOUNTER 2023-06-17 19:22 | Inpatient (IN) | payer MEDICARE, OTHER ==
[~2023-06-17 19:22] MED LIST: Iopamidol-370 76% 500 ML MDV (1 ML CHARGE) ONE
[2023-06-17 19:37] LABS: #Basophils 0.1 thou/uL (0.0-0.2); #Eosinphils 0.3 thou/uL (0.0-0.7); #Monocytes 0.9 thou/uL (0.11-0.59); #Neutrophils 3.4 thou/uL (1.40-6.50); %Basophils 0.7 % (0.0-1.0); %Eosinophils 3.1 % (0.0-10.0); %Lymphocytes 42.2 % (21.0-51.0); %Monocytes 11.1 % (0.0-10.0); %Neutrophils 42.8 % (42.0-75.0); Hematocrit 41.4 % (42.0-52.0); Mean Corpuscular HGB CONC 33.8 g/dL (32.0-36.0); Mean Corpuscular Hemoglobin 31.6 pg (27.0-31.0); Mean Corpuscular Volume 93.5 fl (78.0-98.0); Mean Platelet Volume 8.8 fL (7.4-10.4); Platelet Count 167 10x3/uL (130-400); RBC Distribution Width 13.2 % (11.5-14.5); Red Blood Cell (RBC) Count 4.43 mill/uL (4.70-6.10)
[2023-06-17 19:52] LABS: INR-International Normal Ratio 1.3; PTT 29.5 sec (22.9-36.1); Prothrombin Time 16.7 sec (12.0-14.7)
[2023-06-17] MEDS ORDERED: Aspirin 325 MG TAB ONE (19:58)
[2023-06-17 20:02] LABS: ALT (SGPT) 14 U/L (8-55); AST (SGOT) 34 U/L (5-34); Albumin 3.9 g/dL (3.4-4.8); Alkaline Phosphatase 165 U/L (40-110); Anion Gap 14 mmol/L (10-20); BUN (Urea Nitrogen) 10 mg/dL (8.4-25.7); Bilirubin, Total 1.1 mg/dL (0.2-1.2); Calc. Creatinine Clearance 0 mL/min (70-130); Carbon Dioxide 24 mmol/L (23-31); Chloride 103 mmol/L (98-107); Estimated GFR 84; Globulin 3.7 g/dL (2.4-3.5); Glucose 129 mg/dL (83-110); Lipase 30 U/L (8-78); Magnesium 1.8 mg/dL (1.6-2.6); Potassium 3.7 mmol/L (3.5-5.1); Protein, Total 7.6 g/dL (5.8-8.1); Sodium 137 mmol/L (136-145)
[2023-06-17 20:03] LABS: Troponin I Less than 0.010 ng/mL (< 0.028)
[2023-06-17] MEDS ORDERED: Tenecteplase 50 MG ONE (20:10)
[2023-06-17] MEDS ORDERED: Ondansetron PF 4 MG/2 ML Vial IVP PRN (20:56)
[2023-06-17] MEDS ORDERED: niCARdipine 25 MG in Sodium Chloride 0.9% 250 ML 250 ML IVPB PRN (20:58)
[2023-06-17] MEDS ORDERED: hydrALAZINE 20 MG/ML VIAL SLOW IVP PRN (20:58)
[2023-06-17] MEDS ORDERED: Labetalol HCl 100 MG/20 ML VIAL SLOW IVP PRN (20:58)
[2023-06-17] MEDS ORDERED: Lorazepam 1 MG TAB PO PRN (21:03)
[2023-06-17] MEDS ORDERED: Lorazepam 2 MG/ML VIAL IM PRN (21:03)
[2023-06-17] MEDS ORDERED: Electrolyte Replacement Protocol 1 EACH FS PRN (21:15)
[2023-06-17 21:16] LABS: Acetaminophen Less than 10 mcg/mL (10.0-30.0); Alcohol Less than 10.0 mg/dL (Less than 10); Salicylate Less than 8.0 mg/dL (15.0-30.0)
[2023-06-17] MEDS ORDERED: Magnesium 2 GM/50 ML(in water) 2 GM in Premix 1 BAG IVPB SCH (23:00)
[2023-06-17 23:22] LABS: Bilirubin Negative (Negative); Blood, Urine Negative (Negative); Clarity Clear (Clear); Glucose, Urine (Dipstick) Normal (Negative); Ketone, Urine Negative (Negative); Leukocyte Negative Leu/uL (Negative); Nitrite Negative (Negative); Protein, Urine (Dipstick) Negative (Neg-Trace); Specific Gravity, Urine 1.035 (1.002-1.036); Urobilinogen Normal mg/dL (Less than 2); pH, Urine 7.5 (5.0-9.0)
[2023-06-17 23:32] LABS: Amphetamine Not Detected (NotDetected); Barbiturates Screen Not Detected (NotDetected); Benzodiazepine Screen Not Detected (NotDetected); Cocaine Metabolite Screen Not Detected (NotDetected); Methadone Not Detected (NotDetected); Methamphetamine Not Detected (NotDetected); Opiate Screen Not Detected (NotDetected); Oxycodone Screen Not Detected (NotDetected); Phencyclidine (PCP) Not Detected (NotDetected); THC/Cannabinoid Screen Not Detected (NotDetected); Tricyclic Screen Not Detected (NotDetected)
[2023-06-18] MEDS: NO ANTITHROMBOTICS FS SCH ×2 (00:20→21:36)
[2023-06-18] MEDS: Atorvastatin Calcium 40 MG TAB PO SCH ×2 (00:28→21:36)
[2023-06-18] MEDS: Thiamine HCl 200 MG/2 ML VIAL SLOW IVP SCH ×2 (00:35→21:35)
[2023-06-18 01:00] VITALS: BMI 23.6
[2023-06-18] MEDS: Folic Acid 1 MG TAB PO SCH (15:12)
[2023-06-18] MEDS: Multivit, Therapeutic 1 TAB PO SCH (15:12)
[2023-06-18] MEDS ORDERED: Lorazepam 1 MG TAB PO PRN (21:03)
[2023-06-18] MEDS ORDERED: Labetalol HCl 100 MG/20 ML VIAL SLOW IVP PRN (23:31)
[2023-06-18] MEDS ORDERED: hydrALAZINE 20 MG/ML VIAL SLOW IVP PRN (23:31)
[2023-06-18] MEDS ORDERED: niCARdipine 25 MG in Sodium Chloride 0.9% 250 ML 250 ML IVPB PRN (23:31)
[2023-06-19 07:10] LABS: #Basophils 0.1 thou/uL (0.0-0.2); #Eosinphils 0.1 thou/uL (0.0-0.7); #Neutrophils 5.1 thou/uL (1.40-6.50); %Basophils 0.7 % (0.0-1.0); %Eosinophils 1.6 % (0.0-10.0); %Lymphocytes 22.5 % (21.0-51.0); %Monocytes 12.5 % (0.0-10.0); %Neutrophils 62.6 % (42.0-75.0); Hemoglobin 14.7 g/dL (14.0-18.0); Mean Corpuscular HGB CONC 34.2 g/dL (32.0-36.0); Mean Corpuscular Hemoglobin 31.3 pg (27.0-31.0); Mean Corpuscular Volume 91.7 fl (78.0-98.0); Platelet Count 183 10x3/uL (130-400); RBC Distribution Width 13.2 % (11.5-14.5); Red Blood Cell (RBC) Count 4.69 mill/uL (4.70-6.10); White Blood Cell (WBC) Count 8.1 10x3/uL (4.8-10.8)
[2023-06-19 07:43] LABS: INR-International Normal Ratio 1.3; PTT 30.7 sec (22.9-36.1); Prothrombin Time 16.7 sec (12.0-14.7)
[2023-06-19 07:59] LABS: Hemoglobin A1c 4.8 % (4.0-6.0)
[2023-06-19 08:28] LABS: Anion Gap 13 mmol/L (10-20); BUN (Urea Nitrogen) 11 mg/dL (8.4-25.7); Calc. Creatinine Clearance 74 mL/min (70-130); Carbon Dioxide 24 mmol/L (23-31); Cardiac Risk 1.7 (Less than 4.5); Chloride 100 mmol/L (98-107); Cholesterol 152 mg/dl (< 200 Desired); Estimated GFR 93; Glucose 92 mg/dL (83-110); HDL Cholesterol 88 mg/dL (>60 Neg Risk); LDL Cholesterol, Calculated 58 mg/dL; Potassium 3.9 mmol/L (3.5-5.1); Sodium 133 mmol/L (136-145); Triglycerides 31 mg/dL (Less than 150)
[2023-06-19] MEDS: Multivit, Therapeutic 1 TAB PO SCH (09:33)
[2023-06-19] MEDS: Folic Acid 1 MG TAB PO SCH (09:33)
[2023-06-19] MEDS: Lisinopril 10 MG TAB PO SCH (09:34)
[2023-06-19] MEDS: Acetaminophen 325 MG TAB PO PRN ×2 (12:48→20:19)
[2023-06-19] MEDS ORDERED: HYDROcodone/Acetaminophen 5/325 mg Tablet PO SCH (15:00)
[2023-06-19] MEDS: Atorvastatin Calcium 40 MG TAB PO SCH (20:20)
[2023-06-19] MEDS: Thiamine HCl 200 MG/2 ML VIAL SLOW IVP SCH (20:20)
[2023-06-19] MEDS ORDERED: Lorazepam 1 MG TAB PO PRN (21:03)
[2023-06-20 04:55] LABS: #Basophils 0.1 thou/uL (0.0-0.2); #Eosinphils 0.3 thou/uL (0.0-0.7); #Monocytes 1.1 thou/uL (0.11-0.59); #Neutrophils 4.9 thou/uL (1.40-6.50); %Basophils 0.9 % (0.0-1.0); %Eosinophils 3.8 % (0.0-10.0); %Lymphocytes 21.8 % (21.0-51.0); %Monocytes 13.1 % (0.0-10.0); Hematocrit 39.1 % (42.0-52.0); Hemoglobin 13.3 g/dL (14.0-18.0); Mean Corpuscular Hemoglobin 31.7 pg (27.0-31.0); Mean Corpuscular Volume 93.3 fl (78.0-98.0); Mean Platelet Volume 9.1 fL (7.4-10.4); Platelet Count 171 10x3/uL (130-400); RBC Distribution Width 13.2 % (11.5-14.5); Red Blood Cell (RBC) Count 4.19 mill/uL (4.70-6.10); White Blood Cell (WBC) Count 8.1 10x3/uL (4.8-10.8)
[2023-06-20] MEDS: Acetaminophen 325 MG TAB PO PRN ×3 (05:11→19:20)
[2023-06-20 05:27] LABS: Anion Gap 11 mmol/L (10-20); BUN (Urea Nitrogen) 14 mg/dL (8.4-25.7); Calc. Creatinine Clearance 74 mL/min (70-130); Carbon Dioxide 26 mmol/L (23-31); Chloride 101 mmol/L (98-107); Estimated GFR 93; Glucose 81 mg/dL (83-110); Magnesium 1.9 mg/dL (1.6-2.6); Potassium 3.7 mmol/L (3.5-5.1); Sodium 134 mmol/L (136-145)
[2023-06-20 07:53] LABS: Troponin I Less than 0.010 ng/mL (< 0.028)
[2023-06-20] MEDS ORDERED: Magnesium 2 GM/50 ML(in water) 2 GM in Premix 1 BAG IVPB SCH (08:00)
[2023-06-20] MEDS: Lisinopril 10 MG TAB PO SCH (08:57)
[2023-06-20] MEDS: Folic Acid 1 MG TAB PO SCH (08:58)
[2023-06-20] MEDS: Multivit, Therapeutic 1 TAB PO SCH (08:58)
[2023-06-20] MEDS ORDERED: Lactated Ringer's 500 ML IV SCH ×2 (17:00→17:15)
[2023-06-20] MEDS: Thiamine 100 MG TAB PO SCH (19:20)
[2023-06-20] MEDS: Atorvastatin Calcium 40 MG TAB PO SCH (19:20)
[2023-06-20] MEDS ORDERED: Lorazepam 0.5 MG TAB PO PRN (21:03)
[2023-06-21 03:55] LABS: #Basophils 0.1 thou/uL (0.0-0.2); #Eosinphils 0.3 thou/uL (0.0-0.7); #Neutrophils 3.9 thou/uL (1.40-6.50); %Basophils 0.8 % (0.0-1.0); %Eosinophils 4.1 % (0.0-10.0); %Lymphocytes 27.3 % (21.0-51.0); %Monocytes 13.4 % (0.0-10.0); %Neutrophils 54.1 % (42.0-75.0); Hemoglobin 12.6 g/dL (14.0-18.0); Mean Corpuscular HGB CONC 34.1 g/dL (32.0-36.0); Mean Corpuscular Hemoglobin 31.7 pg (27.0-31.0); Mean Platelet Volume 9.1 fL (7.4-10.4); Platelet Count 177 10x3/uL (130-400); RBC Distribution Width 13.2 % (11.5-14.5); Red Blood Cell (RBC) Count 3.98 mill/uL (4.70-6.10); White Blood Cell (WBC) Count 7.1 10x3/uL (4.8-10.8)
[2023-06-21 04:26] LABS: Anion Gap 13 mmol/L (10-20); BUN (Urea Nitrogen) 21 mg/dL (8.4-25.7); Calc. Creatinine Clearance 72 mL/min (70-130); Calcium 8.5 mg/dL (7.8-10.44); Carbon Dioxide 22 mmol/L (23-31); Chloride 102 mmol/L (98-107); Estimated GFR 92; Glucose 82 mg/dL (83-110); Potassium 3.5 mmol/L (3.5-5.1); Sodium 133 mmol/L (136-145)
[2023-06-21] MEDS ORDERED: Potassium Chloride 20 MEQ TAB PO SCH (08:00)
[2023-06-21] MEDS ORDERED: Magnesium 2 GM/50 ML(in water) 2 GM in Premix 1 BAG IVPB SCH (08:00)
[2023-06-21] MEDS: Multivit, Therapeutic 1 TAB PO SCH (09:09)
[2023-06-21] MEDS: Lisinopril 10 MG TAB PO SCH (09:09)
[2023-06-21] MEDS: Folic Acid 1 MG TAB PO SCH (09:09)
[2023-06-21 12:38] LABS: Troponin I Less than 0.010 ng/mL (< 0.028)
[2023-06-21] MEDS: Thiamine 100 MG TAB PO SCH (20:23)
[2023-06-21] MEDS: Atorvastatin Calcium 40 MG TAB PO SCH (20:23)
[2023-06-22 04:27] LABS: #Basophils 0.1 thou/uL (0.0-0.2); #Eosinphils 0.3 thou/uL (0.0-0.7); #Monocytes 0.8 thou/uL (0.11-0.59); #Neutrophils 3.5 thou/uL (1.40-6.50); %Basophils 0.9 % (0.0-1.0); %Eosinophils 4.5 % (0.0-10.0); %Lymphocytes 26.6 % (21.0-51.0); %Monocytes 12.8 % (0.0-10.0); %Neutrophils 54.9 % (42.0-75.0); Hematocrit 38.2 % (42.0-52.0); Hemoglobin 12.9 g/dL (14.0-18.0); Mean Corpuscular HGB CONC 33.8 g/dL (32.0-36.0); Mean Corpuscular Hemoglobin 31.4 pg (27.0-31.0); Mean Corpuscular Volume 92.9 fl (78.0-98.0); Platelet Count 197 10x3/uL (130-400); Red Blood Cell (RBC) Count 4.11 mill/uL (4.70-6.10); White Blood Cell (WBC) Count 6.4 10x3/uL (4.8-10.8)
[2023-06-22 04:51] LABS: Anion Gap 11 mmol/L (10-20); BUN (Urea Nitrogen) 15 mg/dL (8.4-25.7); Calc. Creatinine Clearance 78 mL/min (70-130); Calcium 9.1 mg/dL (7.8-10.44); Carbon Dioxide 26 mmol/L (23-31); Chloride 101 mmol/L (98-107); Estimated GFR 94; Glucose 87 mg/dL (83-110); Potassium 3.7 mmol/L (3.5-5.1); Sodium 134 mmol/L (136-145)
[2023-06-22] MEDS: Lisinopril 10 MG TAB PO SCH (10:29)
[2023-06-22] MEDS: Multivit, Therapeutic 1 TAB PO SCH (10:29)
[2023-06-22] MEDS: Folic Acid 1 MG TAB PO SCH (10:29)
[2023-06-22] MEDS ORDERED: Magnesium Oxide 400 MG TAB PO SCH (13:11)
[2023-06-22] MEDS ORDERED: Lactated Ringer's 1,000 ML IV SCH (13:15)
[2023-06-22] MEDS: Acetaminophen 325 MG TAB PO PRN ×2 (14:25→21:21)
[2023-06-22] MEDS: Atorvastatin Calcium 40 MG TAB PO SCH (21:19)
[2023-06-22] MEDS: Thiamine 100 MG TAB PO SCH (21:19)
[2023-06-23 03:49] LABS: #Basophils 0.1 thou/uL (0.0-0.2); #Eosinphils 0.3 thou/uL (0.0-0.7); #Monocytes 0.9 thou/uL (0.11-0.59); #Neutrophils 3.9 thou/uL (1.40-6.50); %Eosinophils 3.8 % (0.0-10.0); %Lymphocytes 27.8 % (21.0-51.0); %Monocytes 12.3 % (0.0-10.0); %Neutrophils 54.8 % (42.0-75.0); Hematocrit 35.2 % (42.0-52.0); Hemoglobin 11.9 g/dL (14.0-18.0); Mean Corpuscular HGB CONC 33.8 g/dL (32.0-36.0); Mean Corpuscular Hemoglobin 31.5 pg (27.0-31.0); Mean Corpuscular Volume 93.1 fl (78.0-98.0); Mean Platelet Volume 8.9 fL (7.4-10.4); Platelet Count 200 10x3/uL (130-400); RBC Distribution Width 12.9 % (11.5-14.5); Red Blood Cell (RBC) Count 3.78 mill/uL (4.70-6.10)
[2023-06-23 04:11] LABS: Anion Gap 10 mmol/L (10-20); BUN (Urea Nitrogen) 15 mg/dL (8.4-25.7); Calc. Creatinine Clearance 76 mL/min (70-130); Calcium 8.9 mg/dL (7.8-10.44); Carbon Dioxide 25 mmol/L (23-31); Chloride 103 mmol/L (98-107); Estimated GFR 94; Glucose 90 mg/dL (83-110); Potassium 3.7 mmol/L (3.5-5.1); Sodium 134 mmol/L (136-145)
[2023-06-23] MEDS ORDERED: Potassium Chloride 20 MEQ TAB PO SCH (08:30)
[2023-06-23] MEDS: Multivit, Therapeutic 1 TAB PO SCH (10:09)
[2023-06-23] MEDS: Folic Acid 1 MG TAB PO SCH (10:12)
[2023-06-23] MEDS: Lisinopril 10 MG TAB PO SCH (10:12)
[2023-06-23] MEDS: Magnesium Oxide 400 MG TAB PO SCH (10:12)
[2023-06-23] MEDS ORDERED: Lactated Ringer's 1,000 ML IV SCH (15:30)
[2023-06-23] MEDS: Atorvastatin Calcium 40 MG TAB PO SCH (21:23)
[2023-06-23] MEDS: Thiamine 100 MG TAB PO SCH (21:23)
[2023-06-23] MEDS: Acetaminophen 325 MG TAB PO PRN (21:23)
[2023-06-24 07:14] LABS: #Basophils 0.1 thou/uL (0.0-0.2); #Eosinphils 0.3 thou/uL (0.0-0.7); #Monocytes 0.8 thou/uL (0.11-0.59); %Basophils 1.3 % (0.0-1.0); %Eosinophils 4.8 % (0.0-10.0); %Lymphocytes 32.3 % (21.0-51.0); %Monocytes 12.4 % (0.0-10.0); Hematocrit 36.6 % (42.0-52.0); Hemoglobin 12.4 g/dL (14.0-18.0); Mean Corpuscular HGB CONC 33.9 g/dL (32.0-36.0); Mean Corpuscular Hemoglobin 31.5 pg (27.0-31.0); Mean Corpuscular Volume 92.9 fl (78.0-98.0); Mean Platelet Volume 9.2 fL (7.4-10.4); Platelet Count 211 10x3/uL (130-400); RBC Distribution Width 12.8 % (11.5-14.5); Red Blood Cell (RBC) Count 3.94 mill/uL (4.70-6.10)
[2023-06-24 07:33] LABS: Anion Gap 9 mmol/L (10-20); BUN (Urea Nitrogen) 12 mg/dL (8.4-25.7); Calc. Creatinine Clearance 82 mL/min (70-130); Calcium 9.1 mg/dL (7.8-10.44); Carbon Dioxide 26 mmol/L (23-31); Chloride 104 mmol/L (98-107); Estimated GFR 96; Glucose 86 mg/dL (83-110); Potassium 3.8 mmol/L (3.5-5.1); Sodium 135 mmol/L (136-145)
[2023-06-24] MEDS: Folic Acid 1 MG TAB PO SCH (08:22)
[2023-06-24] MEDS: Lisinopril 10 MG TAB PO SCH (08:22)
[2023-06-24] MEDS: Multivit, Therapeutic 1 TAB PO SCH (08:22)
[2023-06-24] MEDS: Magnesium Oxide 400 MG TAB PO SCH (08:22)
[2023-06-24 13:12] LABS: Magnesium 1.6 mg/dL (1.6-2.6)
[2023-06-24] MEDS ORDERED: Magnesium 2 GM/50 ML(in water) 2 GM in Premix 1 BAG IVPB SCH (21:15)
[2023-06-24] MEDS: Thiamine 100 MG TAB PO SCH (21:30)
[2023-06-24] MEDS: Atorvastatin Calcium 40 MG TAB PO SCH (21:30)
[2023-06-25 05:50] LABS: #Basophils 0.1 thou/uL (0.0-0.2); #Eosinphils 0.2 thou/uL (0.0-0.7); #Monocytes 0.7 thou/uL (0.11-0.59); #Neutrophils 3.2 thou/uL (1.40-6.50); %Basophils 1.5 % (0.0-1.0); %Eosinophils 3.5 % (0.0-10.0); %Lymphocytes 31.3 % (21.0-51.0); %Monocytes 11.5 % (0.0-10.0); %Neutrophils 51.9 % (42.0-75.0); Hematocrit 37.7 % (42.0-52.0); Hemoglobin 12.8 g/dL (14.0-18.0); Mean Corpuscular Hemoglobin 31.8 pg (27.0-31.0); Mean Corpuscular Volume 93.8 fl (78.0-98.0); Mean Platelet Volume 9.1 fL (7.4-10.4); Platelet Count 221 10x3/uL (130-400); RBC Distribution Width 12.7 % (11.5-14.5); Red Blood Cell (RBC) Count 4.02 mill/uL (4.70-6.10); White Blood Cell (WBC) Count 6.2 10x3/uL (4.8-10.8)
[2023-06-25 06:16] LABS: Anion Gap 10 mmol/L (10-20); BUN (Urea Nitrogen) 11 mg/dL (8.4-25.7); Calc. Creatinine Clearance 74 mL/min (70-130); Calcium 8.9 mg/dL (7.8-10.44); Carbon Dioxide 26 mmol/L (23-31); Chloride 103 mmol/L (98-107); Estimated GFR 93; Glucose 88 mg/dL (83-110); Magnesium 2.3 mg/dL (1.6-2.6); Sodium 135 mmol/L (136-145)
[2023-06-25] MEDS: Magnesium Oxide 400 MG TAB PO SCH (08:38)
[2023-06-25] MEDS: Folic Acid 1 MG TAB PO SCH (08:39)
[2023-06-25] MEDS: Multivit, Therapeutic 1 TAB PO SCH (08:40)
[2023-06-25] MEDS: Lisinopril 10 MG TAB PO SCH (09:03)
[2023-06-25] MEDS ORDERED: Senokot S 8.6-50 MG TAB PO SCH (13:45)
[2023-06-25] MEDS ORDERED: Polyethylene Glycol 3350 17 GM Packet PO SCH (13:45)
[2023-06-25] MEDS: Thiamine 100 MG TAB PO SCH (21:15)
[2023-06-25] MEDS: Senokot S 8.6-50 MG TAB PO SCH (21:15)
[2023-06-25] MEDS: Atorvastatin Calcium 40 MG TAB PO SCH (21:15)
[2023-06-26 04:00] LABS: #Basophils 0.1 thou/uL (0.0-0.2); #Eosinphils 0.3 thou/uL (0.0-0.7); #Monocytes 1.1 thou/uL (0.11-0.59); #Neutrophils 3.6 thou/uL (1.40-6.50); %Basophils 0.9 % (0.0-1.0); %Eosinophils 4.2 % (0.0-10.0); %Lymphocytes 32.5 % (21.0-51.0); %Monocytes 13.9 % (0.0-10.0); %Neutrophils 48.2 % (42.0-75.0); Hematocrit 35.9 % (42.0-52.0); Hemoglobin 12.2 g/dL (14.0-18.0); Mean Corpuscular Hemoglobin 31.7 pg (27.0-31.0); Mean Corpuscular Volume 93.2 fl (78.0-98.0); Mean Platelet Volume 8.9 fL (7.4-10.4); Platelet Count 233 10x3/uL (130-400); RBC Distribution Width 12.8 % (11.5-14.5); Red Blood Cell (RBC) Count 3.85 mill/uL (4.70-6.10); White Blood Cell (WBC) Count 7.6 10x3/uL (4.8-10.8)
[2023-06-26 04:27] LABS: Anion Gap 10 mmol/L (10-20); BUN (Urea Nitrogen) 16 mg/dL (8.4-25.7); Calc. Creatinine Clearance 73 mL/min (70-130); Calcium 8.9 mg/dL (7.8-10.44); Carbon Dioxide 27 mmol/L (23-31); Chloride 102 mmol/L (98-107); Estimated GFR 92; Glucose 93 mg/dL (83-110); Potassium 3.9 mmol/L (3.5-5.1); Sodium 135 mmol/L (136-145)
[2023-06-26] MEDS: Polyethylene Glycol 3350 17 GM Packet PO SCH (08:31)
[2023-06-26] MEDS: Magnesium Oxide 400 MG TAB PO SCH (08:32)
[2023-06-26] MEDS: Senokot S 8.6-50 MG TAB PO SCH ×2 (08:32→20:04)
[2023-06-26] MEDS: Folic Acid 1 MG TAB PO SCH (08:32)
[2023-06-26] MEDS: Multivit, Therapeutic 1 TAB PO SCH (08:32)
[2023-06-26] MEDS: Lisinopril 10 MG TAB PO SCH (09:53)
[2023-06-26] MEDS: Thiamine 100 MG TAB PO SCH (20:04)
[2023-06-26] MEDS: Atorvastatin Calcium 40 MG TAB PO SCH (20:04)
[2023-06-27 05:00] LABS: #Basophils 0.1 thou/uL (0.0-0.2); #Eosinphils 0.3 thou/uL (0.0-0.7); #Monocytes 0.9 thou/uL (0.11-0.59); #Neutrophils 4.2 thou/uL (1.40-6.50); %Basophils 1.2 % (0.0-1.0); %Eosinophils 3.2 % (0.0-10.0); %Lymphocytes 29.8 % (21.0-51.0); %Monocytes 11.2 % (0.0-10.0); %Neutrophils 54.3 % (42.0-75.0); Hematocrit 37.8 % (42.0-52.0); Hemoglobin 12.8 g/dL (14.0-18.0); Mean Corpuscular HGB CONC 33.9 g/dL (32.0-36.0); Mean Corpuscular Hemoglobin 31.5 pg (27.0-31.0); Mean Corpuscular Volume 93.1 fl (78.0-98.0); Mean Platelet Volume 9.1 fL (7.4-10.4); Platelet Count 250 10x3/uL (130-400); RBC Distribution Width 12.7 % (11.5-14.5); Red Blood Cell (RBC) Count 4.06 mill/uL (4.70-6.10); White Blood Cell (WBC) Count 7.8 10x3/uL (4.8-10.8)
[2023-06-27 05:27] LABS: Anion Gap 12 mmol/L (10-20); BUN (Urea Nitrogen) 15 mg/dL (8.4-25.7); Calc. Creatinine Clearance 75 mL/min (70-130); Calcium 9.2 mg/dL (7.8-10.44); Carbon Dioxide 27 mmol/L (23-31); Chloride 102 mmol/L (98-107); Estimated GFR 93; Glucose 88 mg/dL (83-110); Potassium 3.7 mmol/L (3.5-5.1); Sodium 137 mmol/L (136-145)
[2023-06-27] MEDS: Magnesium Oxide 400 MG TAB PO SCH (10:43)
[2023-06-27] MEDS: Folic Acid 1 MG TAB PO SCH ×2 (10:43→10:44)
[2023-06-27] MEDS: Multivit, Therapeutic 1 TAB PO SCH (10:43)
[2023-06-27] MEDS: Senokot S 8.6-50 MG TAB PO SCH ×2 (10:44→20:01)
[2023-06-27] MEDS: Polyethylene Glycol 3350 17 GM Packet PO SCH (10:44)
[2023-06-27] MEDS: Atorvastatin Calcium 40 MG TAB PO SCH (20:01)
[2023-06-27] MEDS: Thiamine 100 MG TAB PO SCH (20:01)
[2023-06-28] MEDS: Folic Acid 1 MG TAB PO SCH (10:39)
[2023-06-28] MEDS: Polyethylene Glycol 3350 17 GM Packet PO SCH (10:41)
[2023-06-28] MEDS: Multivit, Therapeutic 1 TAB PO SCH (10:41)
[2023-06-28] MEDS: Magnesium Oxide 400 MG TAB PO SCH (10:41)
[2023-06-28] MEDS: Senokot S 8.6-50 MG TAB PO SCH ×2 (10:42→20:11)
[2023-06-28] MEDS ORDERED: Gentamicin 80 MG/2 ML VIAL ONE (11:56)
[2023-06-28] MEDS ORDERED: CEFAZOLIN 2 GM VIAL ONE (11:56)
[2023-06-28] MEDS ORDERED: Lidocaine 1% (PF) 30 ML VIAL ONE (11:56)
[2023-06-28] MEDS ORDERED: fentaNYL PF 100 MCG/2 ML SYRINGE ONE (13:05)
[2023-06-28] MEDS ORDERED: Propofol 500 MG/50 ML VIAL ONE (13:06)
[2023-06-28] MEDS ORDERED: ePHEDrine Sulfate 50 MG/10 ML VIAL ONE ×2 (13:49→14:07)
[2023-06-28] MEDS ORDERED: Atropine Sulfate 1 mg/1 ml Vial ONE (14:25)
[2023-06-28] MEDS ORDERED: Acetaminophen 325 MG TAB PO PRN (15:31)
[2023-06-28] MEDS: Cephalexin 250 MG CAP PO SCH (18:53)
[2023-06-28] MEDS: Sodium Chloride 0.9% 1,000 ML IV SCH (18:53)
[2023-06-28] MEDS: Atorvastatin Calcium 40 MG TAB PO SCH (20:11)
[2023-06-28] MEDS: Thiamine 100 MG TAB PO SCH (20:12)
[2023-06-29] MEDS: Cephalexin 250 MG CAP PO SCH ×5 (06:57→23:13)
[2023-06-29] MEDS: Magnesium Oxide 400 MG TAB PO SCH (09:14)
[2023-06-29] MEDS: Senokot S 8.6-50 MG TAB PO SCH ×2 (09:15→20:29)
[2023-06-29] MEDS: Polyethylene Glycol 3350 17 GM Packet PO SCH (09:15)
[2023-06-29] MEDS: Multivit, Therapeutic 1 TAB PO SCH (09:15)
[2023-06-29] MEDS: Folic Acid 1 MG TAB PO SCH (09:15)
[2023-06-29] MEDS: Acetaminophen/Codeine 30-300mg Tablet PO PRN (13:49)
[2023-06-29] MEDS: Sodium Chloride 0.9% 1,000 ML IV SCH (13:56)
[2023-06-29] MEDS: traMADol HCl 50 MG TAB PO PRN (17:46)
[2023-06-29] MEDS: Atorvastatin Calcium 40 MG TAB PO SCH (20:29)
[2023-06-29] MEDS: Thiamine 100 MG TAB PO SCH (20:29)
[2023-06-30] MEDS: Cephalexin 250 MG CAP PO SCH ×3 (05:09→18:50)
[2023-06-30] MEDS: Senokot S 8.6-50 MG TAB PO SCH ×2 (08:21→21:40)
[2023-06-30] MEDS: Polyethylene Glycol 3350 17 GM Packet PO SCH (08:21)
[2023-06-30] MEDS: Folic Acid 1 MG TAB PO SCH (08:21)
[2023-06-30] MEDS: Multivit, Therapeutic 1 TAB PO SCH (08:21)
[2023-06-30] MEDS: Magnesium Oxide 400 MG TAB PO SCH (08:21)
[2023-06-30] MEDS: Lisinopril 2.5 MG TAB PO SCH (08:21)
[2023-06-30] MEDS: Acetaminophen/Codeine 30-300mg Tablet PO PRN ×2 (10:34→16:11)
[2023-06-30] MEDS: Atorvastatin Calcium 40 MG TAB PO SCH (21:40)
[2023-06-30] MEDS: Thiamine 100 MG TAB PO SCH (21:40)
[2023-07-01] MEDS: Cephalexin 250 MG CAP PO SCH ×4 (00:16→19:03)
[2023-07-01] MEDS: Lisinopril 2.5 MG TAB PO SCH (10:08)
[2023-07-01] MEDS: Senokot S 8.6-50 MG TAB PO SCH ×2 (10:08→20:50)
[2023-07-01] MEDS: Magnesium Oxide 400 MG TAB PO SCH (10:09)
[2023-07-01] MEDS: Polyethylene Glycol 3350 17 GM Packet PO SCH (10:09)
[2023-07-01] MEDS: Multivit, Therapeutic 1 TAB PO SCH (10:09)
[2023-07-01] MEDS: Folic Acid 1 MG TAB PO SCH (10:09)
[2023-07-01] MEDS: Atorvastatin Calcium 40 MG TAB PO SCH (20:50)
[2023-07-01] MEDS: Thiamine 100 MG TAB PO SCH (20:50)
[2023-07-01] MEDS: Acetaminophen/Codeine 30-300mg Tablet PO PRN (20:50)
[2023-07-02] MEDS: Cephalexin 250 MG CAP PO SCH ×4 (00:22→19:20)
[2023-07-02 04:13] LABS: #Basophils 0.1 thou/uL (0.0-0.2); #Eosinphils 0.3 thou/uL (0.0-0.7); #Neutrophils 3.7 thou/uL (1.40-6.50); %Basophils 1.1 % (0.0-1.0); %Eosinophils 3.9 % (0.0-10.0); %Lymphocytes 29.8 % (21.0-51.0); %Monocytes 14.1 % (0.0-10.0); %Neutrophils 50.8 % (42.0-75.0); Hematocrit 40.1 % (42.0-52.0); Hemoglobin 13.7 g/dL (14.0-18.0); Mean Corpuscular HGB CONC 34.2 g/dL (32.0-36.0); Mean Corpuscular Hemoglobin 31.4 pg (27.0-31.0); Mean Platelet Volume 9.2 fL (7.4-10.4); Platelet Count 273 10x3/uL (130-400); RBC Distribution Width 12.3 % (11.5-14.5); Red Blood Cell (RBC) Count 4.36 mill/uL (4.70-6.10); White Blood Cell (WBC) Count 7.4 10x3/uL (4.8-10.8)
[2023-07-02 04:36] LABS: Anion Gap 11 mmol/L (10-20); BUN (Urea Nitrogen) 14 mg/dL (8.4-25.7); Calc. Creatinine Clearance 73 mL/min (70-130); Calcium 9.2 mg/dL (7.8-10.44); Carbon Dioxide 28 mmol/L (23-31); Chloride 101 mmol/L (98-107); Estimated GFR 92; Glucose 84 mg/dL (83-110); Potassium 3.8 mmol/L (3.5-5.1); Sodium 136 mmol/L (136-145)
[2023-07-02] MEDS: Polyethylene Glycol 3350 17 GM Packet PO SCH (09:50)
[2023-07-02] MEDS: Acetaminophen 325 MG TAB PO PRN (09:57)
[2023-07-02] MEDS: Multivit, Therapeutic 1 TAB PO SCH (10:01)
[2023-07-02] MEDS: Senokot S 8.6-50 MG TAB PO SCH ×2 (10:01→20:37)
[2023-07-02] MEDS: Folic Acid 1 MG TAB PO SCH (10:01)
[2023-07-02] MEDS: Magnesium Oxide 400 MG TAB PO SCH (10:01)
[2023-07-02] MEDS: traMADol HCl 50 MG TAB PO PRN (15:22)
[2023-07-02] MEDS ORDERED: Aspirin 81 mg Enteric Coated Tablet PO SCH (16:30)
[2023-07-02] MEDS: Atorvastatin Calcium 40 MG TAB PO SCH (20:37)
[2023-07-02] MEDS: Thiamine 100 MG TAB PO SCH (20:37)
[2023-07-03] MEDS: Cephalexin 250 MG CAP PO SCH ×4 (01:25→19:20)
[2023-07-03] MEDS ORDERED: Aspirin 81 mg Enteric Coated Tablet PO SCH (09:00)
[2023-07-03] MEDS: Multivit, Therapeutic 1 TAB PO SCH (09:40)
[2023-07-03] MEDS: Magnesium Oxide 400 MG TAB PO SCH (09:40)
[2023-07-03] MEDS: Folic Acid 1 MG TAB PO SCH (09:41)
[2023-07-03] MEDS: traMADol HCl 50 MG TAB PO PRN (09:41)
[2023-07-03] MEDS: Senokot S 8.6-50 MG TAB PO SCH (09:41)
[2023-07-03] MEDS: Polyethylene Glycol 3350 17 GM Packet PO SCH (09:41)
[2023-07-03 19:49] VITALS: BP 117/63; TEMP 98.1
== END 2023-07-03 21:07 | DRG 40 ==
LOC: ERS 19:22 → CCU 20:47 → 2SE 06-19 18:07
PROVIDERS: ADMIT Internal Medicine; ATTEND Internal Medicine
PROC: 3E03317 Introduction of Other Thrombolytic into Peripheral Vein, Percutaneous Approach (ICD-10-PCS; principal; 2023-06-17)
PROC: 4A00X4Z Measurement of Central Nervous Electrical Activity, External Approach (ICD-10-PCS; 2023-06-18)
PROC: HZ2ZZZZ Detoxification Services for Substance Abuse Treatment (ICD-10-PCS; 2023-06-18)
PROC: 02H63JZ Insertion of Pacemaker Lead into Right Atrium, Percutaneous Approach (ICD-10-PCS; 2023-06-28)
PROC: 0JH606Z Insertion of Pacemaker, Dual Chamber into Chest Subcutaneous Tissue and Fascia, Open Approach (ICD-10-PCS; 2023-06-28)
PROC: 02HL3JZ Insertion of Pacemaker Lead into Left Ventricle, Percutaneous Approach (ICD-10-PCS; 2023-06-28)
DX: I63.9 Cerebral infarction, unspecified (principal); G93.41 Metabolic encephalopathy; I61.9 Nontraumatic intracerebral hemorrhage, unspecified; I50.20 Unspecified systolic (congestive) heart failure; E87.1 Hypo-osmolality and hyponatremia; R47.01 Aphasia; R00.1 Bradycardia, unspecified; R29.714 NIHSS score 14; Z95.1 Presence of aortocoronary bypass graft; Z98.890 Other specified postprocedural states; I25.10 Atherosclerotic heart disease of native coronary artery without angina pectoris; Z79.82 Long term (current) use of aspirin; Z82.49 Family history of ischemic heart disease and other diseases of the circulatory system; F10.20 Alcohol dependence, uncomplicated; Z79.899 Other long term (current) drug therapy; I11.0 Hypertensive heart disease with heart failure; D64.9 Anemia, unspecified; I44.0 Atrioventricular block, first degree; R53.81 Other malaise
CPT/HCPCS: 33208; 36415; 36416; 70450; 70496; 70498; 70551; 71045; 74230; 80048; 80053; 80061; 80306; 80307; 81003; 83036; 83690; 83735; 83930; 83935; 84300; 84484; 85025; 85610; 85730; 93005; 93010; 93306; 93798; 94760; 95711; 95819; 96374; C1785; C1898; J0461; J1580; J2001; J2704; J3101; J3411; J3475; J7050; J7120; Q9967

== ENCOUNTER 2023-11-21 12:08 | Inpatient (IN) | payer MEDICARE ==
[2023-11-21 13:06] LABS: Amphetamine Not Detected (NotDetected); Barbiturates Screen Not Detected (NotDetected); Benzodiazepine Screen Not Detected (NotDetected); Cocaine Metabolite Screen Not Detected (NotDetected); Methadone Not Detected (NotDetected); Methamphetamine Not Detected (NotDetected); Opiate Screen Not Detected (NotDetected); Oxycodone Screen Not Detected (NotDetected); Phencyclidine (PCP) Not Detected (NotDetected); THC/Cannabinoid Screen Not Detected (NotDetected); Tricyclic Screen Not Detected (NotDetected)
[2023-11-21 13:17] LABS: #Basophils Less than 0.03 10x3/uL (0.0-0.2); %Basophils 0.2 % (0.0-1.0); %Eosinophils 0.8 % (0.0-10.0); %Lymphocytes 10.8 % (21.0-51.0); %Monocytes 14.1 % (0.0-10.0); %Neutrophils 73.5 % (42.0-75.0); Hematocrit 39.2 % (42.0-52.0); Hemoglobin 13.7 g/dL (14.0-18.0); Mean Corpuscular HGB CONC 34.9 g/dL (32.0-36.0); Mean Corpuscular Hemoglobin 32.2 pg (27.0-31.0); Mean Corpuscular Volume 92.2 fL (78.0-98.0); Mean Platelet Volume 9.4 fL (7.4-10.4); Platelet Count 152 10x3/uL (130-400); RBC Distribution Width 12.9 % (11.5-14.5); Red Blood Cell (RBC) Count 4.25 mill/uL (4.70-6.10)
[2023-11-21 13:23] LABS: Actual Bicarbonate (HCO3v) 25.3 mEq/L (22-28); Base Excess -0.4 mEq/L (-2.0 to +3.0); Calcium, Ionized (venous) 1.12 mmol/L (1.16-1.32); Chloride (VBG) 102 mmol/L (98-106); Hematocrit-VBG 43 % (42.0-52.0); Hemoglobin (Hb) 14.7 g/dL (12.6-17.4); Potassium (VBG) 2.98 mmol/L (3.70-5.30); Sodium 140 mmol/L (133-146); pH (venous) 7.368 (7.32-7.43)
[2023-11-21 13:32] LABS: INR-International Normal Ratio 1.7; Prothrombin Time 19.8 sec (12.0-14.7)
[2023-11-21 13:33] LABS: PTT 31.1 sec (22.9-36.1)
[2023-11-21 13:38] LABS: Anion Gap 14 mmol/L (10-20)
[2023-11-21 13:43] LABS: ALT (SGPT) 78 U/L (8-55); AST (SGOT) 132 U/L (5-34); Albumin 2.2 g/dL (3.4-4.8); Alkaline Phosphatase 206 U/L (40-110); BUN (Urea Nitrogen) 13 mg/dL (8.4-25.7); CK (CPK) 407 U/L (30-200); Calc. Creatinine Clearance 0 mL/min (70-130); Calcium 8.2 mg/dL (7.8-10.44); Carbon Dioxide 25 mmol/L (23-31); Chloride 103 mmol/L (98-107); Estimated GFR 101; Glucose 90 mg/dL (83-110); Protein, Total 6.2 g/dL (5.8-8.1); Sodium 139 mmol/L (136-145)
[2023-11-21 13:46] LABS: Acetaminophen Less than 10 mcg/mL (10.0-30.0); Alcohol Less than 10.0 mg/dL (Less than 10); Lipase 13 U/L (8-78); Magnesium 1.6 mg/dL (1.6-2.6); Salicylate Less than 8.0 mg/dL (15.0-30.0)
[2023-11-21 13:49] LABS: Influenza A by NAA Not Detected (NotDetected); Influenza B by NAA Not Detected (NotDetected); SARS-CoV-2 NAA Rapid Test Not Detected (NotDetected)
[2023-11-21] MEDS ORDERED: Aspirin Chewable 81 MG TAB ONE (15:03)
[2023-11-21] MEDS ORDERED: Potassium Chloride 20 MEQ TAB ONE (15:03)
[2023-11-21] MEDS ORDERED: Acetaminophen 325 MG TAB PO PRN (15:35)
[2023-11-21] MEDS ORDERED: Lorazepam 1 MG TAB PO PRN (15:38)
[2023-11-21] MEDS ORDERED: Electrolyte Replacement Protocol 1 EACH FS SCH (15:45)
[2023-11-21] MEDS ORDERED: Electrolyte Replacement Protocol FS PRN (15:45)
[2023-11-21] MEDS: Multivitamins, Adult 10 ML, Thiamine HCl 100 MG, Folic Acid 1 MG in Dextrose 5 %-0.45 %... IV SCH (18:09)
[2023-11-21] MEDS: Lorazepam 1 MG TAB PO SCH (18:09)
[2023-11-21] MEDS: Thiamine HCl 200 MG/2 ML VIAL SLOW IVP SCH (18:09)
[2023-11-21] MEDS: Atorvastatin Calcium 40 MG TAB PO SCH (20:03)
[2023-11-21] MEDS: Famotidine 20 MG TAB PO SCH (20:03)
[2023-11-22 08:05] LABS: Anion Gap 12 mmol/L (10-20); Globulin 3.6 g/dL (2.4-3.5)
[2023-11-22 08:09] LABS: ALT (SGPT) 61 U/L (8-55); AST (SGOT) 87 U/L (5-34); Albumin 1.9 g/dL (3.4-4.8); Alkaline Phosphatase 178 U/L (40-110); BUN (Urea Nitrogen) 9 mg/dL (8.4-25.7); Bilirubin, Total 2.4 mg/dL (0.2-1.2); Calc. Creatinine Clearance 85 mL/min (70-130); Carbon Dioxide 27 mmol/L (23-31); Chloride 104 mmol/L (98-107); Estimated GFR 100; Glucose 88 mg/dL (83-110); Potassium 2.9 mmol/L (3.5-5.1); Protein, Total 5.5 g/dL (5.8-8.1); Sodium 140 mmol/L (136-145)
[2023-11-22] MEDS: Multivit, Therapeutic 1 TAB PO SCH (09:33)
[2023-11-22] MEDS: Aspirin 81 mg Enteric Coated Tablet PO SCH (09:33)
[2023-11-22] MEDS: Potassium Chloride 20 MEQ TAB PO SCH (09:33)
[2023-11-22] MEDS: Folic Acid 1 MG TAB PO SCH (09:33)
[2023-11-22] MEDS: Magnesium 2 GM/50 ML(in water) 2 GM in Premix 1 BAG IVPB SCH (09:34)
[2023-11-22] MEDS: cefTRIAXone\\ROCEPHIN 1 GM in Sodium Chloride 0.9% 100 ML IVPB SCH (13:35)
[2023-11-22] MEDS ORDERED: Lorazepam 1 MG TAB PO PRN (15:38)
[2023-11-23 06:47] LABS: Anion Gap 8 mmol/L (10-20)
[2023-11-23 06:50] LABS: BUN (Urea Nitrogen) 10 mg/dL (8.4-25.7); Calc. Creatinine Clearance 80 mL/min (70-130); Calcium 8.3 mg/dL (7.8-10.44); Carbon Dioxide 26 mmol/L (23-31); Chloride 105 mmol/L (98-107); Estimated GFR 98; Glucose 109 mg/dL (83-110); Potassium 3.3 mmol/L (3.5-5.1); Sodium 136 mmol/L (136-145)
[2023-11-23] MEDS: Potassium Chloride 20 MEQ TAB PO SCH (09:53)
[2023-11-23] MEDS: Sodium Chloride 0.9% 1,000 ML IV SCH (11:04)
[2023-11-23] MEDS: Lorazepam 0.5 MG TAB PO SCH (15:05)
[2023-11-23] MEDS ORDERED: Lorazepam 1 MG TAB PO PRN (15:38)
[2023-11-24 04:53] LABS: Anion Gap 10 mmol/L (10-20); Globulin 3.6 g/dL (2.4-3.5)
[2023-11-24 04:58] LABS: ALT (SGPT) 136 U/L (8-55); AST (SGOT) 329 U/L (5-34); Albumin 1.8 g/dL (3.4-4.8); Alkaline Phosphatase 386 U/L (40-110); BUN (Urea Nitrogen) 8 mg/dL (8.4-25.7); Bilirubin, Total 3.1 mg/dL (0.2-1.2); Calc. Creatinine Clearance 94 mL/min (70-130); Calcium 8.1 mg/dL (7.8-10.44); Carbon Dioxide 24 mmol/L (23-31); Chloride 109 mmol/L (98-107); Estimated GFR 103; Glucose 108 mg/dL (83-110); Potassium 3.9 mmol/L (3.5-5.1); Protein, Total 5.4 g/dL (5.8-8.1); Sodium 139 mmol/L (136-145)
[2023-11-24] MEDS: Thiamine 100 MG TAB PO SCH (09:59)
[2023-11-24] MEDS: Vancomycin 1 GM in Premix 1 BAG IVPB SCH (11:35)
[2023-11-24] MEDS ORDERED: Lorazepam 0.5 MG TAB PO PRN (15:38)
[2023-11-24] MEDS: Ampicillin 2 GM in Sodium Chloride 0.9% 100 ML IVPB SCH (17:12)
[2023-11-24] MEDS ORDERED: Vancomycin 1.25 GM in Sodium Chloride 0.9% 250 ML 250 ML IVPB SCH (21:00)
[2023-11-25 05:10] LABS: #Basophils 0.03 10x3/uL (0.0-0.2); %Basophils 0.4 % (0.0-1.0); %Eosinophils 2.2 % (0.0-10.0); %Lymphocytes 19.1 % (21.0-51.0); %Monocytes 11.3 % (0.0-10.0); %Neutrophils 66.6 % (42.0-75.0); Hemoglobin 12.8 g/dL (14.0-18.0); Mean Corpuscular HGB CONC 34.6 g/dL (32.0-36.0); Mean Corpuscular Hemoglobin 32.2 pg (27.0-31.0); Mean Platelet Volume 9.4 fL (7.4-10.4); Platelet Count 262 10x3/uL (130-400); RBC Distribution Width 13.7 % (11.5-14.5); Red Blood Cell (RBC) Count 3.98 mill/uL (4.70-6.10)
[2023-11-25 05:26] LABS: Anion Gap 11 mmol/L (10-20); Globulin 3.7 g/dL (2.4-3.5)
[2023-11-25 05:30] LABS: ALT (SGPT) 127 U/L (8-55); AST (SGOT) 196 U/L (5-34); Albumin 1.9 g/dL (3.4-4.8); Alkaline Phosphatase 357 U/L (40-110); BUN (Urea Nitrogen) 7 mg/dL (8.4-25.7); Calc. Creatinine Clearance 86 mL/min (70-130); Calcium 8.4 mg/dL (7.8-10.44); Carbon Dioxide 26 mmol/L (23-31); Chloride 105 mmol/L (98-107); Estimated GFR 100; Glucose 106 mg/dL (83-110); Potassium 3.5 mmol/L (3.5-5.1); Protein, Total 5.6 g/dL (5.8-8.1); Sodium 138 mmol/L (136-145)
[2023-11-25] MEDS: Potassium Chloride 20 MEQ TAB PO SCH (09:45)
[2023-11-25] MEDS ORDERED: Bisacodyl 5 MG TAB PO PRN (20:37)
[2023-11-25] MEDS: Senokot S 8.6-50 MG TAB PO PRN (20:50)
[2023-11-26 03:53] LABS: Anion Gap 9 mmol/L (10-20); Globulin 3.9 g/dL (2.4-3.5)
[2023-11-26 03:58] LABS: ALT (SGPT) 88 U/L (8-55); AST (SGOT) 108 U/L (5-34); Albumin 1.9 g/dL (3.4-4.8); Alkaline Phosphatase 312 U/L (40-110); BUN (Urea Nitrogen) 6 mg/dL (8.4-25.7); Bilirubin, Total 1.9 mg/dL (0.2-1.2); Calc. Creatinine Clearance 87 mL/min (70-130); Calcium 8.5 mg/dL (7.8-10.44); Carbon Dioxide 26 mmol/L (23-31); Chloride 106 mmol/L (98-107); Estimated GFR 101; Glucose 93 mg/dL (83-110); Potassium 3.7 mmol/L (3.5-5.1); Protein, Total 5.8 g/dL (5.8-8.1); Sodium 137 mmol/L (136-145)
[2023-11-26] MEDS: Dextrose 5% in Water 1,000 ML IV SCH (16:20)
[2023-11-27 04:21] LABS: #Basophils 0.05 10x3/uL (0.0-0.2); %Basophils 0.4 % (0.0-1.0); %Eosinophils 2.1 % (0.0-10.0); %Lymphocytes 15.5 % (21.0-51.0); %Monocytes 12.2 % (0.0-10.0); %Neutrophils 69.3 % (42.0-75.0); Hematocrit 33.5 % (42.0-52.0); Hemoglobin 11.5 g/dL (14.0-18.0); Mean Corpuscular HGB CONC 34.3 g/dL (32.0-36.0); Mean Corpuscular Hemoglobin 32.2 pg (27.0-31.0); Mean Corpuscular Volume 93.8 fL (78.0-98.0); Mean Platelet Volume 9.5 fL (7.4-10.4); Platelet Count 336 10x3/uL (130-400); RBC Distribution Width 13.7 % (11.5-14.5); Red Blood Cell (RBC) Count 3.57 mill/uL (4.70-6.10)
[2023-11-27 04:43] LABS: Anion Gap 10 mmol/L (10-20); Globulin 3.9 g/dL (2.4-3.5)
[2023-11-27 04:47] LABS: ALT (SGPT) 65 U/L (8-55); AST (SGOT) 73 U/L (5-34); Albumin 1.8 g/dL (3.4-4.8); Alkaline Phosphatase 269 U/L (40-110); BUN (Urea Nitrogen) 9 mg/dL (8.4-25.7); Bilirubin, Total 1.6 mg/dL (0.2-1.2); Calc. Creatinine Clearance 68 mL/min (70-130); Calcium 8.4 mg/dL (7.8-10.44); Carbon Dioxide 24 mmol/L (23-31); Chloride 106 mmol/L (98-107); Estimated GFR 93; Glucose 130 mg/dL (83-110); Potassium 3.6 mmol/L (3.5-5.1); Protein, Total 5.7 g/dL (5.8-8.1); Sodium 136 mmol/L (136-145)
[2023-11-27 11:06] VITALS: BMI 21.2
[2023-11-30] MEDS: Polyvinyl Alcohol 1.4%/Povidone 0.6% Opth Drops EA EYE SCH (12:37)
[2023-12-01 04:41] LABS: Hemoglobin 11.6 g/dL (14.0-18.0); Mean Corpuscular HGB CONC 34.1 g/dL (32.0-36.0); Mean Corpuscular Hemoglobin 32.1 pg (27.0-31.0); Mean Corpuscular Volume 94.2 fL (78.0-98.0); Mean Platelet Volume 9.2 fL (7.4-10.4); Platelet Count 387 10x3/uL (130-400); RBC Distribution Width 13.2 % (11.5-14.5); Red Blood Cell (RBC) Count 3.61 mill/uL (4.70-6.10)
[2023-12-01 05:04] LABS: Anion Gap 9 mmol/L (10-20)
[2023-12-01 05:06] LABS: BUN (Urea Nitrogen) 10 mg/dL (8.4-25.7); Calc. Creatinine Clearance 76 mL/min (70-130); Calcium 8.5 mg/dL (7.8-10.44); Carbon Dioxide 24 mmol/L (23-31); Chloride 107 mmol/L (98-107); Estimated GFR 95; Glucose 90 mg/dL (83-110); Potassium 3.3 mmol/L (3.5-5.1); Sodium 137 mmol/L (136-145)
[2023-12-01] MEDS: Potassium Chloride 20 MEQ TAB PO SCH (08:53)
[2023-12-02] MEDS: Polyvinyl Alcohol 1.4%/Povidone 0.6% Opth Drops EA EYE PRN (21:13)
[2023-12-03] MEDS: Sodium Chloride 0.9% 100 ML ONE (10:03)
[2023-12-04 11:55] VITALS: BP 110/50; TEMP 98.4
== END 2023-12-04 14:15 | DRG 71 ==
LOC: ERS 12:08 → 2NO 16:53
PROVIDERS: ADMIT Internal Medicine; ATTEND Hospitalist
DX: G93.41 Metabolic encephalopathy (principal); I69.353 Hemiplegia and hemiparesis following cerebral infarction affecting right non-dominant side; K80.00 Calculus of gallbladder with acute cholecystitis without obstruction; M62.82 Rhabdomyolysis; R78.81 Bacteremia; S36.119A Unspecified injury of liver, initial encounter; R79.89 Other specified abnormal findings of blood chemistry; R53.81 Other malaise; B95.2 Enterococcus as the cause of diseases classified elsewhere; I11.9 Hypertensive heart disease without heart failure; I25.10 Atherosclerotic heart disease of native coronary artery without angina pectoris; I10 Essential (primary) hypertension; F10.20 Alcohol dependence, uncomplicated; R74.01 Elevation of levels of liver transaminase levels; E87.6 Hypokalemia; R29.6 Repeated falls; Z95.0 Presence of cardiac pacemaker; Z91.148 Patient's other noncompliance with medication regimen for other reason; Z79.82 Long term (current) use of aspirin; Z79.899 Other long term (current) drug therapy; Z98.890 Other specified postprocedural states; Z95.1 Presence of aortocoronary bypass graft; R41.0 Disorientation, unspecified
CPT/HCPCS: 36415; 70450; 71260; 72125; 74177; 76705; 78227; 80048; 80053; 80306; 80307; 82140; 82550; 82805; 83605; 83690; 83735; 83880; 84484; 85025; 85027; 85610; 85730; 87040; 87077; 87149; 87186; 93005; 94760; 96374; A9537; J0290; J0696; J3370-JW; J3411; J3475; J3490; J7042; J7050; J7070; Q9967

== ENCOUNTER 2024-05-01 14:09 | Inpatient (IN) | payer MEDICARE ==
[2024-05-01 14:39] LABS: #Basophils 0.05 10x3/uL (0.0-0.2); %Basophils 0.8 % (0.0-1.0); %Lymphocytes 14.7 % (21.0-51.0); %Monocytes 7.5 % (0.0-10.0); %Neutrophils 75.8 % (42.0-75.0); Hematocrit 38.3 % (42.0-52.0); Hemoglobin 12.9 g/dL (14.0-18.0); Mean Corpuscular HGB CONC 33.7 g/dL (32.0-36.0); Mean Corpuscular Hemoglobin 31.8 pg (27.0-31.0); Mean Corpuscular Volume 94.3 fL (78.0-98.0); Mean Platelet Volume 8.7 fL (7.4-10.4); Platelet Count 184 10x3/uL (130-400); RBC Distribution Width 13.6 % (11.5-14.5); Red Blood Cell (RBC) Count 4.06 mill/uL (4.70-6.10)
[2024-05-01 14:51] LABS: INR-International Normal Ratio 1.3; Prothrombin Time 16.2 sec (12.0-14.7)
[2024-05-01 14:52] LABS: PTT 31.6 sec (22.9-36.1)
[2024-05-01 15:05] LABS: ALT (SGPT) 8 U/L (8-55); AST (SGOT) 25 U/L (5-34); Albumin 3.1 g/dL (3.4-4.8); Alkaline Phosphatase 121 U/L (40-110); Anion Gap 12 mmol/L (10-20); BUN (Urea Nitrogen) 8 mg/dL (8.4-25.7); Bilirubin, Total 0.8 mg/dL (0.2-1.2); Calc. Creatinine Clearance 0 mL/min (70-130); Carbon Dioxide 25 mmol/L (23-31); Chloride 108 mmol/L (98-107); Estimated GFR 90; Globulin 4.5 g/dL (2.4-3.5); Glucose 111 mg/dL (83-110); Potassium 3.9 mmol/L (3.5-5.1); Protein, Total 7.6 g/dL (5.8-8.1); Sodium 141 mmol/L (136-145); Troponin I Less than 0.010 ng/mL (< 0.028)
[2024-05-01] MEDS ORDERED: Ondansetron PF 4 MG/2 ML Vial IVP PRN (15:52)
[2024-05-01] MEDS ORDERED: Acetaminophen 325 MG TAB PO PRN (15:52)
[2024-05-01] MEDS ORDERED: hydrALAZINE 20 MG/ML VIAL SLOW IVP PRN (16:12)
[2024-05-01] MEDS ORDERED: LORazepam 2 MG/ML SYR.(CARPUJECT) ONE (20:47)
[2024-05-01] MEDS ORDERED: levETIRAcetam 500 MG (5 mL) VIAL ONE (20:48)
[2024-05-01] MEDS ORDERED: Lorazepam 1 MG TAB PO PRN (20:49)
[2024-05-01] MEDS: Lorazepam 2 MG/ML VIAL SLOW IVP SCH (20:57)
[2024-05-01] MEDS: levETIRAcetam 500 MG (5 mL) VIAL SLOW IVP SCH (20:58)
[2024-05-01] MEDS ORDERED: Electrolyte Replacement Protocol 1 EACH FS SCH (21:00)
[2024-05-01] MEDS ORDERED: Electrolyte Replacement Protocol 1 EACH FS PRN (21:00)
[2024-05-01] MEDS ORDERED: Lorazepam 1 MG TAB PO SCH (21:00)
[2024-05-01] MEDS ORDERED: Lorazepam 2 MG/ML VIAL SLOW IVP PRN (23:01)
[2024-05-01 23:04] VITALS: BMI 22.1
[2024-05-01] MEDS: Thiamine HCl 200 MG/2 ML VIAL SLOW IVP SCH (23:04)
[2024-05-01] MEDS: Atorvastatin Calcium 40 MG TAB PO SCH (23:05)
[2024-05-01] MEDS: Sodium Chloride 0.9% 1,000 ML IV SCH (23:05)
[2024-05-02 04:29] LABS: #Basophils 0.03 10x3/uL (0.0-0.2); #Eosinphils Less than 0.03 10x3/uL (0.0-0.7); %Basophils 0.3 % (0.0-1.0); %Lymphocytes 13.4 % (21.0-51.0); %Monocytes 9.6 % (0.0-10.0); %Neutrophils 76.2 % (42.0-75.0); Hematocrit 38.1 % (42.0-52.0); Hemoglobin 12.6 g/dL (14.0-18.0); Mean Corpuscular HGB CONC 33.1 g/dL (32.0-36.0); Mean Corpuscular Hemoglobin 31.7 pg (27.0-31.0); Mean Platelet Volume 8.9 fL (7.4-10.4); Platelet Count 163 10x3/uL (130-400); RBC Distribution Width 13.9 % (11.5-14.5); Red Blood Cell (RBC) Count 3.97 mill/uL (4.70-6.10)
[2024-05-02 04:51] LABS: Hemoglobin A1c 4.9 % (4.0-6.0)
[2024-05-02] MEDS: Lorazepam 2 MG/ML VIAL SLOW IVP SCH (04:57)
[2024-05-02 05:18] LABS: ALT (SGPT) 8 U/L (8-55); AST (SGOT) 23 U/L (5-34); Albumin 2.9 g/dL (3.4-4.8); Alkaline Phosphatase 102 U/L (40-110); Anion Gap 14 mmol/L (10-20); BUN (Urea Nitrogen) 9 mg/dL (8.4-25.7); Bilirubin, Total 1.5 mg/dL (0.2-1.2); Calc. Creatinine Clearance 73 mL/min (70-130); Calcium 8.6 mg/dL (7.8-10.44); Carbon Dioxide 21 mmol/L (23-31); Cardiac Risk 1.9 (Less than 4.5); Chloride 109 mmol/L (98-107); Cholesterol 145 mg/dl (< 200 Desired); Estimated GFR 96; Globulin 3.9 g/dL (2.4-3.5); Glucose 125 mg/dL (83-110); HDL Cholesterol 75 mg/dL (>60 Neg Risk); LDL Cholesterol, Calculated 61 mg/dL; Magnesium 1.7 mg/dL (1.6-2.6); Potassium 3.3 mmol/L (3.5-5.1); Protein, Total 6.8 g/dL (5.8-8.1); Sodium 141 mmol/L (136-145); Triglycerides 44 mg/dL (Less than 150)
[2024-05-02] MEDS: Magnesium 2 GM/50 ML(in water) 2 GM in Premix 1 BAG IVPB SCH (06:16)
[2024-05-02] MEDS: Potassium Chloride 20 MEQ in Premix 1 BAG IVPB SCH (08:56)
[2024-05-02] MEDS: levETIRAcetam 500 MG (5 mL) VIAL SLOW IVP SCH ×2 (09:00→20:15)
[2024-05-02] MEDS: Enoxaparin 40 MG (0.4 mL) SYRINGE SC SCH (09:03)
[2024-05-02] MEDS: Thiamine 100 MG TAB PO SCH (09:07)
[2024-05-02] MEDS: Aspirin 81 mg Enteric Coated Tablet PO SCH (09:07)
[2024-05-02] MEDS: Folic Acid 1 MG TAB PO SCH (09:07)
[2024-05-02] MEDS: Multivit, Therapeutic 1 TAB PO SCH (09:07)
[2024-05-02 12:09] LABS: Amphetamine Not Detected (NotDetected); Barbiturates Screen Not Detected (NotDetected); Benzodiazepine Screen Not Detected (NotDetected); Cocaine Metabolite Screen Not Detected (NotDetected); Methadone Not Detected (NotDetected); Methamphetamine Not Detected (NotDetected); Opiate Screen Not Detected (NotDetected); Oxycodone Screen Not Detected (NotDetected); Phencyclidine (PCP) Not Detected (NotDetected); THC/Cannabinoid Screen Not Detected (NotDetected); Tricyclic Screen Not Detected (NotDetected)
[2024-05-02] MEDS ORDERED: Lorazepam 1 MG TAB PO PRN (20:50)
[2024-05-03 04:48] LABS: #Basophils 0.06 10x3/uL (0.0-0.2); %Basophils 0.7 % (0.0-1.0); %Lymphocytes 18.5 % (21.0-51.0); %Monocytes 10.5 % (0.0-10.0); Hematocrit 38.1 % (42.0-52.0); Mean Corpuscular HGB CONC 34.1 g/dL (32.0-36.0); Mean Corpuscular Hemoglobin 31.7 pg (27.0-31.0); Mean Corpuscular Volume 92.9 fL (78.0-98.0); Mean Platelet Volume 9.5 fL (7.4-10.4); Platelet Count 158 10x3/uL (130-400); RBC Distribution Width 13.7 % (11.5-14.5)
[2024-05-03 05:04] LABS: Anion Gap 12 mmol/L (10-20); BUN (Urea Nitrogen) 10 mg/dL (8.4-25.7); Calc. Creatinine Clearance 83 mL/min (70-130); Calcium 8.2 mg/dL (7.8-10.44); Carbon Dioxide 21 mmol/L (23-31); Chloride 110 mmol/L (98-107); Estimated GFR 99; Glucose 90 mg/dL (83-110); Magnesium 1.9 mg/dL (1.6-2.6); Potassium 3.3 mmol/L (3.5-5.1); Sodium 140 mmol/L (136-145)
[2024-05-03] MEDS: Magnesium 2 GM/50 ML(in water) 2 GM in Premix 1 BAG IVPB SCH (05:38)
[2024-05-03] MEDS: Potassium Bicarbonate/Cit Ac 20 MEQ TAB PO SCH (09:26)
[2024-05-03] MEDS: Folic Acid 1 MG TAB PO SCH (09:28)
[2024-05-03] MEDS: Metoprolol Tartrate 25 MG TAB PO SCH (09:28)
[2024-05-03] MEDS ORDERED: Lorazepam 1 MG TAB PO PRN (20:50)
[2024-05-03] MEDS ORDERED: Lorazepam 0.5 MG TAB PO SCH (21:00)
[2024-05-03] MEDS: Sodium Chloride 0.9% 1,000 ML IV SCH (22:23)
[2024-05-04 04:34] LABS: #Basophils 0.05 10x3/uL (0.0-0.2); %Basophils 0.5 % (0.0-1.0); %Eosinophils 1.4 % (0.0-10.0); %Lymphocytes 19.8 % (21.0-51.0); %Monocytes 10.1 % (0.0-10.0); Hematocrit 39.1 % (42.0-52.0); Hemoglobin 13.3 g/dL (14.0-18.0); Mean Corpuscular Hemoglobin 32.4 pg (27.0-31.0); Mean Corpuscular Volume 95.4 fL (78.0-98.0); Mean Platelet Volume 9.4 fL (7.4-10.4); Platelet Count 176 10x3/uL (130-400); RBC Distribution Width 13.5 % (11.5-14.5)
[2024-05-04 05:06] LABS: Anion Gap 13 mmol/L (10-20); BUN (Urea Nitrogen) 11 mg/dL (8.4-25.7); Calc. Creatinine Clearance 86 mL/min (70-130); Calcium 8.3 mg/dL (7.8-10.44); Carbon Dioxide 20 mmol/L (23-31); Chloride 109 mmol/L (98-107); Estimated GFR 100; Glucose 89 mg/dL (83-110); Magnesium 1.8 mg/dL (1.6-2.6); Potassium 3.5 mmol/L (3.5-5.1); Sodium 138 mmol/L (136-145)
[2024-05-04] MEDS: Potassium Chloride 20 MEQ TAB PO SCH (10:47)
[2024-05-04] MEDS: Magnesium 2 GM/50 ML(in water) 2 GM in Premix 1 BAG IVPB SCH (10:48)
[2024-05-04] MEDS: Lisinopril 2.5 MG TAB PO SCH (16:44)
[2024-05-04] MEDS ORDERED: levETIRAcetam 500 MG (5 mL) VIAL SLOW IVP SCH (21:00)
[2024-05-04] MEDS: levETIRAcetam 500 MG (5 mL) VIAL SLOW IVP SCH (21:39)
[2024-05-05 06:17] LABS: #Basophils 0.06 10x3/uL (0.0-0.2); %Basophils 0.8 % (0.0-1.0); %Eosinophils 2.8 % (0.0-10.0); %Lymphocytes 20.7 % (21.0-51.0); %Monocytes 12.5 % (0.0-10.0); %Neutrophils 62.9 % (42.0-75.0); Hematocrit 37.3 % (42.0-52.0); Hemoglobin 12.7 g/dL (14.0-18.0); Mean Platelet Volume 9.1 fL (7.4-10.4); Platelet Count 189 10x3/uL (130-400); RBC Distribution Width 13.2 % (11.5-14.5); Red Blood Cell (RBC) Count 3.97 mill/uL (4.70-6.10)
[2024-05-05 06:44] LABS: Anion Gap 10 mmol/L (10-20); BUN (Urea Nitrogen) 9 mg/dL (8.4-25.7); Calc. Creatinine Clearance 81 mL/min (70-130); Calcium 8.3 mg/dL (7.8-10.44); Carbon Dioxide 23 mmol/L (23-31); Chloride 106 mmol/L (98-107); Estimated GFR 99; Glucose 90 mg/dL (83-110); Magnesium 1.8 mg/dL (1.6-2.6); Potassium 3.5 mmol/L (3.5-5.1); Sodium 135 mmol/L (136-145)
[2024-05-05] MEDS ORDERED: Lisinopril 5 MG TAB PO SCH (09:00)
[2024-05-05] MEDS: Magnesium 2 GM/50 ML(in water) 2 GM in Premix 1 BAG IVPB SCH (09:19)
[2024-05-05] MEDS: Potassium Chloride 20 MEQ TAB PO SCH (09:19)
[2024-05-05] MEDS: Lisinopril 2.5 MG TAB PO SCH (09:19)
[2024-05-06] MEDS ORDERED: Docusate 100 MG CAP PO PRN (03:15)
[2024-05-06 06:31] LABS: Anion Gap 13 mmol/L (10-20); BUN (Urea Nitrogen) 13 mg/dL (8.4-25.7); Calc. Creatinine Clearance 80 mL/min (70-130); Calcium 8.5 mg/dL (7.8-10.44); Carbon Dioxide 19 mmol/L (23-31); Chloride 105 mmol/L (98-107); Estimated GFR 98; Glucose 82 mg/dL (83-110); Magnesium 1.8 mg/dL (1.6-2.6); Sodium 133 mmol/L (136-145)
[2024-05-06] MEDS: Magnesium 2 GM/50 ML(in water) 2 GM in Premix 1 BAG IVPB SCH (09:11)
[2024-05-06] MEDS: Clopidogrel Bisulfate 75 MG TAB PO SCH (09:12)
[2024-05-06] MEDS ORDERED: Heparin 1,000 UNITS/ML VIAL ONE (14:23)
[2024-05-06] MEDS: Sacubitril 24MG/Valsartan 26 MG TAB PO SCH (20:21)
[2024-05-06] MEDS: Melatonin 3 MG TAB PO PRN (20:23)
[2024-05-06] MEDS: Lorazepam 0.5 MG TAB PO PRN (20:25)
[2024-05-06] MEDS: levETIRAcetam 500 MG TAB PO SCH (20:26)
[2024-05-07 05:02] LABS: Anion Gap 11 mmol/L (10-20); BUN (Urea Nitrogen) 16 mg/dL (8.4-25.7); Calc. Creatinine Clearance 80 mL/min (70-130); Calcium 8.4 mg/dL (7.8-10.44); Carbon Dioxide 23 mmol/L (23-31); Chloride 104 mmol/L (98-107); Estimated GFR 98; Glucose 115 mg/dL (83-110); Magnesium 1.8 mg/dL (1.6-2.6); Potassium 3.5 mmol/L (3.5-5.1); Sodium 134 mmol/L (136-145)
[2024-05-07] MEDS: Potassium Chloride 20 MEQ TAB PO SCH (08:41)
[2024-05-07] MEDS: Empagliflozin 10 MG TAB PO SCH (08:41)
[2024-05-07] MEDS: Magnesium 2 GM/50 ML(in water) 2 GM in Premix 1 BAG IVPB SCH (08:42)
[2024-05-07 10:35] VITALS: BMI 22.1
[2024-05-08 04:39] LABS: Anion Gap 10 mmol/L (10-20); BUN (Urea Nitrogen) 19 mg/dL (8.4-25.7); Calc. Creatinine Clearance 70 mL/min (70-130); Calcium 8.9 mg/dL (7.8-10.44); Carbon Dioxide 23 mmol/L (23-31); Chloride 109 mmol/L (98-107); Estimated GFR 95; Glucose 107 mg/dL (83-110); Sodium 138 mmol/L (136-145)
[2024-05-08] MEDS: Magnesium 2 GM/50 ML(in water) 2 GM in Premix 1 BAG IVPB SCH (09:36)
[2024-05-08] MEDS: Albumin 25% 25 GM (100 mL) BOT IVPB SCH (11:44)
[2024-05-09 05:16] LABS: Anion Gap 12 mmol/L (10-20); BUN (Urea Nitrogen) 14 mg/dL (8.4-25.7); Calc. Creatinine Clearance 73 mL/min (70-130); Calcium 9.4 mg/dL (7.8-10.44); Carbon Dioxide 24 mmol/L (23-31); Chloride 108 mmol/L (98-107); Estimated GFR 96; Glucose 94 mg/dL (83-110); Potassium 3.5 mmol/L (3.5-5.1); Sodium 140 mmol/L (136-145)
[2024-05-09] MEDS: Potassium Chloride 20 MEQ TAB PO SCH (05:34)
[2024-05-09] MEDS: Magnesium 2 GM/50 ML(in water) 2 GM in Premix 1 BAG IVPB SCH (08:13)
[2024-05-09 12:00] LABS: Potassium 4.2 mmol/L (3.5-5.1)
[2024-05-09 12:21] VITALS: BP 131/60; TEMP 98
== END 2024-05-09 13:48 | DRG 69 ==
LOC: ERS 14:09 → SUATTDRO 14:09 → ERHOLD 15:55 → 2SE 22:04
PROVIDERS: ADMIT Internal Medicine; ATTEND Internal Medicine
PROC: 4A00X4Z Measurement of Central Nervous Electrical Activity, External Approach (ICD-10-PCS; principal; 2024-05-04)
PROC: 30233J1 Transfusion of Nonautologous Serum Albumin into Peripheral Vein, Percutaneous Approach (ICD-10-PCS; 2024-05-08)
DX: G45.9 Transient cerebral ischemic attack, unspecified (principal); I50.21 Acute systolic (congestive) heart failure; G93.49 Other encephalopathy; I25.5 Ischemic cardiomyopathy; Z79.82 Long term (current) use of aspirin; Z79.899 Other long term (current) drug therapy; E78.5 Hyperlipidemia, unspecified; F10.10 Alcohol abuse, uncomplicated; E87.6 Hypokalemia; D64.9 Anemia, unspecified; Z95.0 Presence of cardiac pacemaker; I11.0 Hypertensive heart disease with heart failure; I25.10 Atherosclerotic heart disease of native coronary artery without angina pectoris; Z95.1 Presence of aortocoronary bypass graft
CPT/HCPCS: 36415; 36416; 70450; 70496; 70498; 70551; 71045; 78472; 80048; 80053; 80061; 80306; 80307; 83036; 83735; 83880; 84443; 84484; 85025; 85610; 85730; 93005; 93306; 93880; 95700; 95712; 95816; 95819; 96374; 96375; A9560; J1644; J1650; J1953; J2060; J3411; J3475; J3480; J7030; P9047; Q9967